=== PATIENT | female | born 1995 | race Caucasian/White ===

== ENCOUNTER 2017-04-13 15:09 | Emergency (ER) | payer MEDICAID ==
[~2017-04-13] VITALS: Ht 170.2 cm; Wt 83.9 kg
[~2017-04-13 15:09] MED LIST: ADDERALL XR25 MG PO; AMITRIPTYLINE 550 MG PO; AMITRIPTYLINE50 MG PO; APAP/BUTALBITAL1 TA1 PO; AUGMENTIN 875-1 EACH PO; BIRTH CONTROL PILLS PO; BUSPIRONE HCL10 MG PO; CELEXA40 MG PO; CIPRO 500MG TA500 MG PO; DELTASONE5 MG PO; ESCITALOPRAM20 MG NG; FLAGYL 500MG.500 MG PO; FLEXERIL10 MG PO; HYDROCODONE-APA1 TA1 PO; HYDROCORT 1% CR30 GM TP; HYDROXYZINE50 MG PO; IBUPROFEN 600M600 MG PO; KEFLEX 500MG.500 MG PO; LEVAQUIN500 MG PO; LEXAPRO 20 MG T20 MG PO; MEDROL 4MG. DOSE4 MG PO; MELOXICAM15 MG PO; METHOCARBAMOL500 MG PO; METHYLPHENIDATE10 M1 PO; MIGRAINE MED PO; MOBIC15 MG PO; MOTRIN400 MG PO; NAPROSYN500 M1 PO; NAPROXEN SODIU500 MG PO; NUVARING1 ICR VG; QUALITY CHOICE10 M2 PO; RISPERDAL0.5 MG PO; RITALIN 5MG TABL5 MG PO; RITALIN5 MG PO; SUMATRIPTAN5 MG PO; TIZANIDINE2 MG PO; TRAZODONE100 MG PO; VALACYCLOVIR HYD1 GM PO; VENTOLIN H0.09 MG/Ac IH; VOLTAREN75 MG PO; ZOFRAN ODT4 MG PO; ZOFRAN4 MG PO; Zithromax500 MG PO
[2017-04-13] MEDS ORDERED: SPRINTEC 35 MCG1 TAB PO (15:15)
[2017-04-13] MEDS ORDERED: GABAPENTIN 600600 MG PO (15:15)
[2017-04-13] MEDS ORDERED: TRAZADONE HYDR100 MG PO (15:16)
[2017-04-13] MEDS ORDERED: GOOD SENSE OMEP20 MG PO (15:16)
[2017-04-13] MEDS ORDERED: QUETIAPINE FUMA50 M1 PO (15:16)
[2017-04-13] MEDS ORDERED: FLUOXETINE HYDR20 MG PO (15:16)
[2017-04-13] MEDS ORDERED: DICLOFENAC SODI75 M2 PO (15:16)
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
--- OUTSIDE RECORDS SUMMARY | 2017-04-13 15:47 | External Medical Summary Rpt ---
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 AR 0 MA MG CY TA BL ET DI 61 05 06 60 30 00 CL Ac CL 44 -2 -2 .0 00 IN ti OF 20 0- 3- 00 00 IC ve EN 10 20 20 41 AC 31 17 17 59 PH 0 81 AR SO MA D CY DR 75 MG TA B ROSALES 55 05 06 9. 30 00 CL Ac MA 11 -2 -2 00 00 IN ti TR 10 3- 3- 0 00 IC ve IP 29 20 20 42 TA 30 17 17 89 PH N 9 91 AR ROSALES MA CC CY 10 0 MG TA BL ET TR 59 05 06 2. 1 00 CL Ac IA 76 -2 -2 00 00 IN ti ZO 23 4- 3- 0 00 IC ve LA 71 20 20 43 M 80 17 17 19 PH 0. 4 93 AR 25 MA CY MG TA BL ET VE 00 05 06 18 16 00 CL Ac NT 17 -1 -1 .0 00 IN ti OL 30 7- 6- 00 00 IC ve IN 68 20 20 43 22 17 17 13 PH HF 0 13 AR A MA 90 CY MC G IN TIDWELL LE R IB 55 05 06 30 10 00 CL Ac UP 11 -1 -1 .0 00 IN ti RO 10 1- 6- 00 00 IC ve FE 68 20 20 43 N 40 17 17 08 PH 80 5 55 AR 0 MA MG CY TA BL ET CL 00 05 06 21 7 00 CL Ac IN 59 -1 -1 .0 00 IN ti DA 12 1- 6- 00 00 IC ve MY 93 20 20 43 CI 20 17 17 08 PH N 1 56 AR HC MA L CY 30 0 MG CA PS UL E SP 00 05 06 28 28 00 CL Ac RI 55 -1 -1 .0 00 IN ti NT 59 7- 6- 00 00 IC ve EC 01 20 20 42 65 17 17 86 PH 28 8 19 AR MA DA CY Y TA BL ET PN 44 04 05 30 30 00 CL Ac V 94 -2 -2 .0 00 IN ti LA 61 3- 6- 00 00 IC ve EN 04 20 20 40 AT 50 17 17 94 PH AL [address] CY US MU LT IV IT TA B OM 00 04 05 60 30 00 CL Ac EP 11 -2 -2 .0 00 IN ti RA 30 3- 6- 00 00 IC ve ZO 91 20 20 42 LE 53 17 17 63 PH [address] MA CY 20 MG TA BL ET ROSALES 55 04 05 9. 9 00 CL Ac MA 11 -2 -2 00 00 IN ti TR 10 3- 6- 0 00 IC ve IP 29 20 20 42 TA 30 17 17 63 PH N 9 16 AR ROSALES MA CC CY 10 0 MG TA BL ET TR 50 04 05 30 30 00 CL Ac AZ 11 -2 -2 .0 00 IN ti OD 10 3- 6- 00 00 IC ve ON 43 20 20 42 E 40 17 17 63 PH 10 1 18 AR 0 MA MG CY TA BL ET QU 67 04 05 60 30 00 CL Ac ET 87 -2 -2 .0 00 IN ti IA 70 3- 6- 00 00 IC ve PI 24 20 20 41 NE 90 17 17 71 PH 1 12 AR FU MA MA CY RA TE 50 MG TA B DI 61 04 05 60 30 00 CL Ac CL 44 -2 -2 .0 00 IN ti OF 20 3- 6- 00 00 IC ve EN 10 20 20 41 AC 31 17 17 59 PH 0 81 AR SO MA D CY DR 75 MG TA B FL 65 04 05 30 30 00 CL Ac UO 86 -2 -2 .0 00 IN ti XE 20 3- 6- 00 00 IC ve TI 19 20 20 41 NE 30 17 17 71 PH 1 14 AR HC MA L CY 20 MG CA PS UL E VE 00 04 05 18 16 00 CL Ac NT 17 -2 -2 .0 00 IN ti OL 30 3- 6- 00 00 IC ve IN 68 20 20 42 22 17 17 35 PH HF 0 28 AR A MA 90 CY MC G IN TIDWELL LE R IB 67 04 05 30 7 00 CL Ac UP 87 -2 -2 .0 00 IN ti RO 70 6- 6- 00 00 IC ve FE 32 20 20 42 N 00 17 17 94 PH 60 5 11 AR 0 MA MG CY TA BL ET HY 13 04 05 [address] 10 -2 -2 .0 00 IN ti OC 70 6- 6- 00 00 IC ve OD 02 20 20 42 ON 00 17 17 94 PH -A 5 12 AR CE MA TA CY HI NO PH 7. 5- 32 5 SP 00 04 05 28 28 00 CL Ac RI 55 -1 -1 .0 00 IN ti NT 59 9- 9- 00 00 IC ve EC 01 20 20 42 65 17 17 86 PH 28 8 19 AR MA DA CY Y TA BL ET PN 44 03 04 30 30 00 CL Ac V 94 -2 -2 .0 00 IN ti LA 61 5- 8- 00 00 IC ve EN 04 20 20 40 AT 50 17 17 94 PH AL [address] CY US MU LT IV IT TA B VE 00 03 04 18 16 00 CL Ac NT 17 -2 -2 .0 00 IN ti OL 30 5- 8- 00 00 IC ve IN 68 20 20 42 22 17 17 35 PH HF 0 28 AR A MA 90 CY MC G IN TIDWELL LE R OM 00 03 04 60 30 00 CL Ac EP 11 -2 -2 .0 00 IN ti RA 30 5- 8- 00 00 IC ve ZO 91 20 20 40 LE 53 17 17 94 PH [address] MA CY 20 MG TA BL ET QU 67 03 04 60 30 00 CL Ac ET 87 -2 -2 .0 00 IN ti IA 70 5- 8- 00 00 IC ve PI 24 20 20 41 NE 90 17 17 71 PH 1 12 AR FU MA MA CY RA TE 50 MG TA B TR 50 03 04 30 30 00 CL Ac AZ 11 -2 -2 .0 00 IN ti OD 10 5- 8- 00 00 IC ve ON 43 20 20 41 E 40 17 17 71 PH 10 1 13 AR 0 MA MG CY TA BL ET FL 65 03 04 30 30 00 CL Ac UO 86 -2 -2 .0 00 IN ti XE 20 5- 8- 00 00 IC ve TI 19 20 20 41 NE 30 17 17 71 PH 1 14 AR HC MA L CY 20 MG CA PS UL E ROSALES 55 03 04 9. 9 00 CL Ac MA 11 -2 -2 00 00 IN ti TR 10 5- 8- 0 00 IC ve IP 29 20 20 40 TA 30 17 17 94 PH N 9 22 AR ROSALES MA CC CY 10 0 MG TA BL ET DI 61 03 04 60 30 00 CL Ac CL 44 -2 -2 .0 00 IN ti OF 20 5- 8- 00 00 IC ve EN 10 20 20 41 AC 31 17 17 59 PH 0 81 AR SO MA D CY DR 75 MG TA B TR 00 06 04 80 16 00 EA Ac IA 16 -1 -[address] ti MC 80 7- 7- 00 00 SI ve IN 00 20 20 39 DE OL 48 15 17 69 ON 0 25 PH E AR 0. MA 1% CY CR OF EA CY M NT HI AN A IN C OM 00 02 03 60 30 00 CL Ac EP 11 -2 -3 .0 00 IN ti RA 30 6- 1- 00 00 IC ve ZO 91 20 20 40 LE 53 17 17 94 PH [address] MA CY 20 MG TA BL ET QU 67 02 03 60 30 00 CL Ac ET 87 -2 -3 .0 00 IN ti IA 70 6- 1- 00 00 IC ve PI 24 20 20 41 NE 90 17 17 71 PH 1 12 AR FU MA MA CY RA TE 50 MG TA B FL 65 02 03 30 30 00 CL Ac UO 86 -2 -3 .0 00 IN ti XE 20 6- 1- 00 00 IC ve TI 19 20 20 41 NE 30 17 17 71 PH 1 14 AR HC MA L CY 20 MG CA PS UL E TR 50 02 03 30 30 00 CL Ac AZ 11 -2 -3 .0 00 IN ti OD 10 6- 1- 00 00 IC ve ON 43 20 20 41 E 40 17 17 71 PH 10 1 13 AR 0 MA MG CY TA BL ET DI 61 02 03 60 30 00 CL Ac CL 44 -2 -3 .0 00 IN ti OF 20 6- 1- 00 00 IC ve EN 10 20 20 40 AC 31 17 17 94 PH 0 20 AR SO MA D CY DR 75 MG TA B VE 00 02 03 18 16 00 CL Ac NT 17 -2 -3 .0 00 IN ti OL 30 7- 1- 00 00 IC ve IN 68 20 20 42 22 17 17 35 PH HF 0 28 AR A MA 90 CY MC G IN TIDWELL LE R ROSALES 55 02 03 9. 9 00 CL Ac MA 11 -1 -1 00 00 IN ti TR 10 4- 7- 0 00 IC ve IP 29 20 20 40 TA 30 17 17 94 PH N 9 22 AR ROSALES MA CC CY 10 0 MG TA BL ET OM 00 01 03 60 30 00 CL Ac EP 11 -3 -0 .0 00 IN ti RA 30 1- 3- 00 00 IC ve ZO 91 20 20 40 LE 53 17 17 94 PH [address] MA CY 20 MG TA BL ET QU 67 01 03 60 30 00 CL Ac ET 87 -3 -0 .0 00 IN ti IA 70 1- 3- 00 00 IC ve PI 24 20 20 41 NE 90 17 17 71 PH 1 12 AR FU MA MA CY RA TE 50 MG TA B DI 61 01 03 60 30 00 CL Ac CL 44 -3 -0 .0 00 IN ti OF 20 1- 3- 00 00 IC ve EN 10 20 20 40 AC 31 17 17 94 PH 0 20 AR SO MA D CY DR 75 MG TA B TR 50 01 03 30 30 00 CL Ac AZ 11 -3 -0 .0 00 IN ti OD 10 1- 3- 00 00 IC ve ON 43 20 20 41 E 40 17 17 71 PH 10 1 13 AR 0 MA MG CY TA BL ET FL 65 01 03 30 30 00 CL Ac UO 86 -3 -0 .0 00 IN ti XE 20 1- 3- 00 00 IC ve TI 19 20 20 41 NE 30 17 17 71 PH 1 14 AR HC MA L CY 20 MG CA PS UL E VE 00 01 03 18 16 00 CL Ac NT 17 -3 -0 .0 00 IN ti OL 30 1- 3- 00 00 IC ve IN 68 20 20 40 22 17 17 94 PH HF 0 29 AR A MA 90 CY MC G IN TIDWELL LE R ROSALES 55 01 02 9. 9 00 CL Ac MA 11 -1 -1 00 00 IN ti TR 10 3- 7- 0 00 IC ve IP 29 20 20 40 TA 30 17 17 94 PH N 9 22 AR ROSALES MA CC CY 10 0 MG TA BL ET DI 61 12 01 60 30 00 CL Ac CL 44 -2 -2 .0 00 IN ti OF 20 2- 7- 00 00 IC ve EN 10 20 20 40 AC 31 16 17 94 PH 0 20 AR SO MA D CY DR 75 MG TA B OM 00 12 01 60 30 00 CL Ac EP 11 -2 -2 .0 00 IN ti RA 30 2- 7- 00 00 IC ve ZO 91 20 20 40 LE 53 16 17 94 PH [address] MA CY 20 MG TA BL ET FL 65 12 01 30 30 00 CL Ac UO 86 -2 -2 .0 00 IN ti XE 20 2- 7- 00 00 IC ve TI 19 20 20 41 NE 30 16 17 44 PH 1 22 AR HC MA L CY 20 MG CA PS UL E TR 50 12 01 30 30 00 CL Ac AZ 11 -2 -2 .0 00 IN ti OD 10 2- 7- 00 00 IC ve ON 43 20 20 41 E 40 16 17 44 PH 10 1 23 AR 0 MA MG CY TA BL ET QU 60 12 01 60 30 00 CL Ac ET 50 -2 -2 .0 00 IN ti IA 53 2- 7- 00 00 IC ve PI 13 20 20 41 NE 20 16 17 44 PH 8 24 AR FU MA MA CY RA TE 50 MG TA B VE 00 12 01 18 16 00 CL Ac NT 17 -2 -2 .0 00 IN ti OL 30 2- 7- 00 00 IC ve IN 68 20 20 40 22 16 17 94 PH HF 0 29 AR A MA 90 CY MC G IN TIDWELL LE R LA 00 12 01 7. 7 00 CL Ac ED 05 1 -1 00 00 IN ti NI 40 2- 3- 0 00 IC ve SO 01 20 20 41 NE 82 16 17 59 PH 9 80 AR 20 MA CY MG TA BL ET AD 54 11 11 0 30 30 EA 25 HI Ac DE 09 -2 -[address] 07 LL ti RA 20 2- 2- 00 SI 13 ER ve LL 38 20 20 DE 90 11 11 CA XR 1 PH RO AR L 25 MA J CY MG OF CA PS CY UL NT E HI AN A 00 11 11 0 10 5 EA 24 RI Ac 14 -1 -[address] 90 SH ti 31 1- 1- 00 SI 11 ER ve 47 20 20 DE 70 11 11 RI 5 PH CH AR AR MA D CY OF CY NT HI AN A IB 53 11 11 0 20 7 EA 24 RI Ac UP 74 -1 -[address] 90 SH ti RO 60 1- 1 00 SI 12 ER ve FE 46 20 20 DE N 60 11 11 RI 80 5 PH CH 0 AR AR MG MA D CY TA BL OF ET CY NT HI AN A 00 11 11 0 20 5 EA 24 RI Ac 09 -[address] 90 SH ti 50 1- 1- 00 SI 13 ER ve 24 20 20 DE 00 11 11 RI 1 PH CH AR AR MA D CY OF CY NT HI AN A 00 11 11 0 6. 30 EA 24 RI Ac -[address] 90 SH ti 30 1- 1- 0 SI 14 ER ve 22 20 20 DE 39 11 11 RI 0 PH CH AR AR MA D CY OF CY NT HI AN A RI 50 09 11 1 60 30 EA 24 HI Ac SP 45 -2 -[address] 27 LL ti ER 80 7- 8- 00 SI 00 ER ve ID 59 20 20 DE ON 16 11 11 CA E 0 PH RO 0. AR L 5 MA J MG CY TA OF BL ET CY NT HI AN A VA 00 10 10 0 20 10 EA 24 WE Ac LT 17 -1 -[address] 58 HR ti RE 30 9 9- 00 SI 47 MA ve X 56 20 20 DE N 1 50 11 11 II GM 4 PH I AR WI CA MA LL PL CY IA ET M OF E CY NT HI AN A 00 10 10 0 2. 2 EA 24 WE Ac -[address] 58 HR ti 37 9- 9- 0 SI 48 MA ve 16 20 20 DE N 93 11 11 II 3 PH I AR WI MA LL CY IA M OF E CY NT HI AN A AD 54 09 10 0 30 30 EA 24 HI Ac DE 09 -2 -[address] 52 LL ti RA 20 7- 7- 00 SI 99 ER ve LL 38 20 20 DE 90 11 11 CA XR 1 PH RO AR L 25 MA J CY MG OF CA PS CY UL NT E HI AN A BR 60 09 10 1 12 3 EA 24 WR Ac OM 43 -0 -[address] 02 IG ti FE 20 9- 3- 00 SI 60 HT ve D 83 20 20 0 DE DM 71 11 11 AR 6 PH DY CO AR C UG MA H CY SY RU OF P CY NT HI AN A NA 53 09 10 0 30 15 EA 24 RI Ac LA 74 -2 -[address] 18 SH ti OX 60 1- 3- 00 SI 98 ER ve EN 19 20 20 DE 01 11 11 RI 50 0 PH CH 0 AR AR MG MA D CY TA BL OF ET CY NT HI AN A RI 50 09 09 1 60 30 EA 24 HI Ac SP 45 -2 -[address] 27 LL ti ER 80 7- 7- 00 SI 00 ER ve ID 59 20 20 DE ON 16 11 11 CA E 0 PH RO 0. AR L 5 MA J MG CY TA OF BL ET CY NT HI AN A PE 00 09 09 1 59 1 EA 24 RI Ac RM 47 -2 -[address] 18 SH ti ET 25 1- 1- 00 SI 96 ER ve HR 24 20 20 DE IN 26 11 11 RI 7 PH CH 1% AR AR MA D LO CY TI ON OF CY NT HI AN A CY 00 09 09 0 15 15 EA 24 RI Ac CL 37 -2 -[address] 18 SH ti OB 80 1- 1- 00 SI 97 ER ve EN 77 20 20 DE ZA 10 11 11 RI LA 1 PH CH IN AR AR E MA D 5 CY MG OF TA BL CY ET NT HI AN A AD 54 09 09 0 30 30 EA 24 HI Ac DE 09 -2 -[address] 16 LL ti RA 20 0- 0- 00 SI 88 ER ve LL 38 20 20 DE 90 11 11 CA XR 1 PH RO AR L 25 MA J CY MG OF CA PS CY UL NT E HI AN A NA 53 09 09 0 30 15 EA 24 WR Ac LA 74 -0 -[address] 02 IG ti OX 60 9- 9- 00 SI 59 HT ve EN 19 20 20 DE 01 11 11 AR 50 0 PH DY 0 AR C MG MA CY TA BL OF ET CY NT HI AN A BR 60 09 09 1 12 3 EA 24 WR Ac OM 43 -0 -[address] 02 IG ti FE 20 9- 9- 00 SI 60 HT ve D 83 20 20 0 DE DM 71 11 11 AR 6 PH DY CO AR C UG MA H CY SY RU OF P CY NT HI AN A CE 00 09 09 0 28 7 EA 24 WR Ac PH 09 -0 -[address] 02 IG ti AL 33 9 9 00 SI 61 HT ve EX 14 20 20 DE IN 70 11 11 AR 5 PH DY 50 AR C 0 MA MG CY CA OF PS UL CY E NT HI AN A RI 50 08 08 1 60 30 EA 23 HI Ac SP 45 -0 -[address] 51 LL ti ER 80 2- 1- 00 SI 05 ER ve ID 59 20 20 DE ON 16 11 11 CA E 0 PH RO 0. AR L 5 MA J MG CY TA OF BL ET CY NT HI AN A AD 54 08 08 0 30 30 EA 23 HI Ac DE 09 -1 -[address] 67 LL ti RA 20 6- 6 00 SI 52 ER ve LL 38 20 20 DE 90 11 11 CA XR 1 PH RO AR L 25 MA J CY MG OF CA PS CY UL NT E HI AN A PE 00 04 08 1 59 1 EA 22 MO Ac RM 47 -2 -[address] 28 SE ti ET 25 7- 9 00 SI 75 S ve HR [address] IN 26 11 11 EP 7 PH HE 1% AR N MA A LO CY TI ON OF CY NT HI AN A RI 50 08 08 1 60 30 EA 23 HI Ac SP 45 -0 -[address] 51 LL ti ER 80 2- 2- 00 SI 05 ER ve ID 59 20 20 DE ON 16 11 11 CA E 0 PH RO 0. AR L 5 MA J MG CY TA OF BL ET CY NT HI AN A AD 54 07 07 0 30 30 EA 23 HI Ac DE 09 -1 -[address] 33 LL ti RA 20 8- 8- 00 SI 98 ER ve LL 38 20 20 DE 90 11 11 CA XR 1 PH RO AR L 25 MA J CY MG OF CA PS CY UL NT E HI AN A RI 50 06 07 1 60 30 EA 22 HI Ac SP 45 -1 -[address] 93 LL ti ER 80 4- 5- 00 SI 40 ER ve ID 59 20 20 DE ON 16 11 11 CA E 0 PH RO 0. AR L 5 MA J MG CY TA OF BL ET CY NT HI AN A AD 54 06 06 0 30 30 EA 22 HI Ac DE 09 -1 -[address] 93 LL ti RA 20 4- 4- 00 SI 62 ER ve LL 38 20 20 DE 90 11 11 CA XR 1 PH RO AR L 25 MA J CY MG OF CA PS CY UL NT E HI AN A RI 50 06 06 0 60 30 EA 22 MO Ac SP 45 -0 -[address] 77 SE ti ER 80 1- 1- 00 SI 23 S ve ID [address] ON 16 11 11 EP E 0 PH HE 0. AR N 5 MA A MG CY TA OF BL ET CY NT HI AN A AD 54 05 05 0 30 30 EA 22 HI Ac DE 09 -0 -[address] 37 LL ti RA 20 3- 3- 00 SI 79 ER ve LL 38 20 20 DE 90 11 11 CA XR 1 PH RO AR L 25 MA J CY MG OF CA PS CY UL NT E HI AN A RI 50 01 04 2 60 30 EA 21 MO Ac SP 45 -3 -[address] 02 SE ti ER 80 1- 8- 00 SI 04 S ve ID [address] ON 16 11 11 EP E 0 PH HE 0. AR N 5 MA A MG CY TA OF BL ET CY NT HI AN A PE 00 04 04 1 59 1 EA 22 MO Ac RM 47 -2 -[address] 28 SE ti ET 25 7- 7- 00 SI 75 S ve HR [address] IN 26 11 11 EP 7 PH HE 1% AR N MA A LO CY TI ON OF CY NT HI AN A AM 00 04 04 0 28 7 EA 22 MO Ac OX 78 -0 -[address] 02 SE ti IC 12 7- 7- 00 SI 54 S ve IL [address] LI 30 11 11 EP N 5 PH HE 50 AR N 0 MA A MG CY CA OF PS UL CY E NT HI AN A CE 45 04 04 5 30 30 EA 22 MO Ac TI 80 -0 -[address] 02 SE ti RI 20 7- 7- 00 SI 55 S ve ZI [address] NE 98 11 11 EP 7 PH HE HC AR N L MA A 10 CY MG OF TA CY BL NT ET HI AN A AD 54 03 03 0 30 30 EA 21 HI Ac DE 09 -2 -[address] 85 LL ti RA 20 5- 0- 00 SI 61 ER ve LL 38 20 20 DE 90 11 11 CA XR 1 PH RO AR L 25 MA J CY MG OF CA PS CY UL NT E HI AN A RI 50 01 03 2 60 30 EA 21 MO Ac SP 45 -3 -[address] 02 SE ti ER 80 1- 1- 00 SI 04 S ve ID [address] ON 16 11 11 EP E 0 PH HE 0. AR N 5 MA A MG CY TA OF BL ET CY NT HI AN A AD 54 02 02 30 30 RI 87 HI Ac DE 09 -1 -2 .0 TE 25 LL ti RA 20 5- 7- 00 63 ER ve LL 38 20 20 AI 90 11 11 D CA XR 1 PH RO AR L 25 MA J CY MG 03 CA 93 PS 8 UL # E 03 93 00 01 01 0 21 14 EA 21 MO Ac 14 -3 -[address] 01 SE ti 31 1- 1- 00 SI 92 S ve [address] 70 11 11 EP 5 PH HE AR N MA A CY OF CY NT HI AN A LA 00 01 01 0 30 7 EA 21 MO Ac OM 78 -3 -[address] 01 SE ti ET 11 1- 1- 00 SI 93 S ve TIDWELL [address] ZI 01 11 11 EP NE 0 PH HE AR N 25 MA A CY MG OF TA BL CY ET NT HI AN A IB 53 01 01 0 90 30 EA 21 MO Ac UP 74 -3 -[address] 01 SE ti RO 60 1- 1- 00 SI 94 S ve FE [address] N 60 11 11 EP 80 5 PH HE 0 AR N MG MA A CY TA BL OF ET CY NT HI AN A RI 50 01 01 2 60 30 EA 21 MO Ac SP 45 -3 -[address] 02 SE ti ER 80 1- 1- 00 SI 04 S ve ID [address] ON 16 11 11 EP E 0 PH HE 0. AR N 5 MA A MG CY TA OF BL ET CY NT HI AN A AD 54 01 01 0 30 30 EA 21 MO Ac DE 09 -3 -[address] 02 SE ti RA 20 1- 1- 00 SI 05 S ve LL [address] 90 11 11 EP XR 1 PH HE AR N 25 MA A CY MG OF CA PS CY UL NT E HI AN A PE 00 01 01 59 1 RI 86 WR Ac RM 47 -2 -2 .0 TE 79 IG ti ET 25 6- 6- 00 32 HT ve HR 24 20 20 AI IN 26 11 11 D AR 7 PH DY 1% AR C MA LO CY TI ON 03 93 8 # 03 93 AD 54 12 12 30 30 RI 86 HI Ac DE 09 -2 -2 .0 TE 43 LL ti RA 20 8- 9- 00 63 ER ve LL 38 20 20 AI 90 10 10 D CA XR 1 PH RO AR L 25 MA J CY MG 03 CA 93 PS 8 UL # E 03 93 RI 50 12 12 0 60 30 EA 20 HI Ac SP 45 -2 -[address] 56 LL ti ER 80 8- 8- 00 SI 82 ER ve ID 59 20 20 DE ON 16 10 10 CA E 0 PH RO 0. AR L 5 MA J MG CY TA OF BL ET CY NT HI AN A RI 50 12 12 3 30 30 EA 20 RI Ac SP 45 -2 -[address] 46 SH ti ER 80 0- 0- 00 SI 11 ER ve ID 59 20 20 DE ON 16 10 10 RI E 0 PH CH 0. AR AR 5 MA D MG CY TA OF BL ET CY NT HI AN A PE 00 12 12 0 59 1 EA 20 MO Ac RM 47 -2 -[address] 46 SE ti ET 25 0- 0- 00 SI 77 S ve HR [address] IN 26 10 10 EP 7 PH HE 1% AR N MA A LO CY TI ON OF CY NT HI AN A OX 00 12 12 20 3 RI 86 HE Ac YC 60 -0 -0 .0 TE 10 ND ti OD 34 6- 6- 00 84 ER ve ON 99 20 20 AI SO E- 82 10 10 D N AC 1 PH RO ET AR BE AM MA RT IN CY W OP HE 03 N 93 5- 8 32 # 5 03 93 ME 00 12 12 1 21 6 RI 86 HE Ac TH 60 -0 -0 .0 TE 10 ND ti YL 34 6- 6- 00 85 ER ve LA 59 20 20 AI SO ED 31 10 10 D N NI 5 PH RO SO AR BE LO MA RT NE CY W 4 03 MG 93 8 DO # SE 03 PK 93 AM 00 12 12 15 5 RI 86 HE Ac OX 78 -0 -0 .0 TE 10 ND ti IC 12 6- 6- 00 86 ER ve IL 61 20 20 AI SO LI 30 10 10 D N N 5 PH RO 50 AR BE 0 MA RT MG CY W CA 03 PS 93 UL 8 E # 03 93 AD 54 11 11 0 30 30 EA 20 RI Ac DE 09 -2 -[address] 16 SH ti RA 20 9- 9- 00 SI 53 ER ve LL 38 20 20 DE 90 10 10 RI XR 1 PH CH AR AR 25 MA D CY MG OF CA PS CY UL NT E HI AN A RI 50 09 11 3 30 30 EA 19 RI Ac SP 45 -1 -[address] 13 SH ti ER 80 4- 2- 00 SI 80 ER ve ID 59 20 20 DE ON 16 10 10 RI E 0 PH CH 0. AR AR 5 MA D MG CY TA OF BL ET CY NT HI AN A 00 11 11 15 2 RI 85 HE Ac 40 -2 -2 .0 TE 92 ND ti 60 2- 2- 00 90 ER ve 35 20 20 AI SO 80 10 10 D N 1 PH RO AR BE MA RT CY W 03 93 8 # 03 93 00 11 11 15 2 RI 85 HE Ac 40 -2 -2 .0 TE 92 ND ti 60 2- 2- 00 90 ER ve 35 20 20 AI SO 80 10 10 D N 1 PH RO AR BE MA RT CY W 03 93 8 # 03 93 PE 00 11 11 0 59 1 EA 19 MO Ac RM 47 -1 -[address] 94 SE ti ET 25 2- 2- 00 SI 59 S ve HR [address] IN 26 10 10 EP 7 PH HE 1% AR N MA A LO CY TI ON OF CY NT HI AN A AD 54 10 10 0 30 30 EA 19 RI Ac DE 09 -2 -[address] 72 SH ti RA 20 8- 8- 00 SI 66 ER ve LL 38 20 20 DE 90 10 10 RI XR 1 PH CH AR AR 25 MA D CY MG OF CA PS CY UL NT E HI AN A RI 50 09 10 3 30 30 EA 19 RI Ac SP 45 -1 -[address] 13 SH ti ER 80 4- 0- 00 SI 80 ER ve ID 59 20 20 DE ON 16 10 10 RI E 0 PH CH 0. AR AR 5 MA D MG CY TA OF BL ET CY NT HI AN A PE 00 10 10 0 59 1 EA 19 MO Ac RM 47 -1 -[address] 51 SE ti ET 25 2- 2- 00 SI 54 S ve HR [address] IN 26 10 10 EP 7 PH HE 1% AR N MA A LO CY TI ON OF CY NT HI AN A RI 50 09 09 3 30 30 EA 19 RI Ac SP 45 -1 -[address] 13 SH ti ER 80 4- 4- 00 SI 80 ER ve ID 59 20 20 DE ON 16 10 10 RI E 0 PH CH 0. AR AR 5 MA D MG CY TA OF BL ET CY NT HI AN A AD 54 09 09 0 30 30 EA 19 RI Ac DE 09 -1 -[address] 13 SH ti RA 20 4- 4- 00 SI 81 ER ve LL 38 20 20 DE 90 10 10 RI XR 1 PH CH AR AR 25 MA D CY MG OF CA PS CY UL NT E HI AN A RI 50 08 08 1 30 30 EA 18 MO Ac SP 45 -0 -[address] 62 SE ti ER 80 7- 7- 00 SI 75 S ve ID [address] ON 16 10 10 EP E 0 PH HE 0. AR N 5 MA A MG CY TA OF BL ET CY NT HI AN A AD 54 08 08 0 30 30 EA 18 MO Ac DE 09 -0 -[address] 62 SE ti RA 20 7- 7- 00 SI 76 S ve LL [address] 90 10 10 EP XR 1 PH HE AR N 25 MA A CY MG OF CA PS CY UL NT E HI AN A 00 08 08 0 22 13 EA 18 WE Ac 14 -0 -[address] 62 HR ti 31 7- 7- 00 SI 77 MA ve 47 20 20 DE N 70 10 10 II 5 PH I AR WI MA LL CY IA M OF E CY NT HI AN A PE 00 08 08 0 59 1 EA 18 RI Ac RM 47 -0 -[address] 57 SH ti ET 25 3- 3- 00 SI 41 ER ve HR 24 20 20 DE IN 26 10 10 RI 7 PH CH 1% AR AR MA D LO CY TI ON OF CY NT HI AN A AM 00 07 07 0 14 7 EA 18 RI Ac OX 14 -2 -[address] 41 SH ti IC 39 0- 0- 00 SI 32 ER ve IL 95 20 20 DE LI 10 10 10 RI N 1 PH CH 87 AR AR 5 MA D MG CY TA OF BL ET CY NT HI AN A NE 61 07 07 0 10 5 EA 18 RI Ac OM 31 -2 -[address] 41 SH ti YC 40 0- 0- 00 SI 33 ER ve IN 64 20 20 DE -P 51 10 10 RI OL 1 PH CH YM AR AR YX MA D IN CY -H C OF EA R CY ROSALES NT SP HI AN A PE 00 07 07 0 59 1 EA 18 RI Ac RM 47 -1 -[address] 39 SH ti ET 25 9- 9- 00 SI 07 ER ve HR 24 20 20 DE IN 26 10 10 RI 7 PH CH 1% AR AR MA D LO CY TI ON OF CY NT HI AN A TR 00 07 07 0 80 5 EA 18 MO Ac IA 16 -1 -[address] 30 SE ti MC 80 2- 2- 00 SI 21 S ve IN [address] OL 48 10 10 EP ON 0 PH HE E AR N 0. MA A 1% CY CR OF EA M CY NT HI AN A RI 00 07 07 2 30 30 RI 84 MO Ac SP 09 -0 -0 .0 TE 04 SE ti ER 30 2- 4- 00 97 S ve ID [address] ON 50 10 10 D EP E 6 PH HE 0. AR N 5 MA A MG CY TA 03 BL 93 ET 8 # 03 93 AD 54 07 07 30 30 RI 84 MO Ac DE 09 -0 -0 .0 TE 05 SE ti RA 20 2- 4- 00 00 S ve LL [address] 90 10 10 D EP XR 1 PH HE AR N 25 MA A CY MG 03 CA 93 PS 8 UL # E 03 93 AD 54 05 05 0 30 30 EA 17 MO Ac DE 09 -2 -[address] 72 SE ti RA 20 5- 5- 00 SI 56 S ve LL [address] 90 10 10 EP XR 1 PH HE AR N 25 MA A CY MG OF CA PS CY UL NT E HI AN A RI 50 05 05 0 60 30 EA 17 RI Ac SP 45 -1 -[address] 63 SH ti ER 80 8- 8- 00 SI 99 ER ve ID 59 20 20 DE ON 26 10 10 RI E 0 PH CH 1 AR AR MG MA D CY TA BL OF ET CY NT HI AN A SM 49 05 05 0 59 1 EA 17 MO Ac 34 -1 -[address] 64 SE ti LI 80 8- 8- 00 SI 00 S ve CE [address] 03 10 10 EP TR 0 PH HE EA AR N TM MA A EN CY T PE OF RM ET CY HR NT IN HI AN A RI 50 01 04 2 60 30 EA 16 RI Ac SP 45 -2 -[address] 04 SH ti ER 80 0- 3- 00 SI 22 ER ve ID 59 20 20 DE ON 26 10 10 RI E 0 PH CH 1 AR AR MG MA D CY TA BL OF ET CY NT HI AN A AD 54 04 04 0 30 30 EA 17 MO Ac DE 09 -2 -[address] 31 SE ti RA 20 3- 3- 00 SI 40 S ve LL [address] 90 10 10 EP XR 1 PH HE AR N 25 MA A CY MG OF CA PS CY UL NT E HI AN A PE 00 04 04 59 1 RI 83 WR Ac RM 47 -2 -2 .0 TE 06 IG ti ET 25 0- 0- 00 58 HT ve HR 24 20 20 AI IN 26 10 10 D AR 7 PH DY 1% AR C MA LO CY TI ON 03 93 8 # 03 93 AD 54 03 03 0 30 30 EA 16 MO Ac DE 09 -2 -[address] 88 SE ti RA 20 2- 2- 00 SI 12 S ve LL [address] 90 10 10 EP XR 1 PH HE AR N 25 MA A CY MG OF CA PS CY UL NT E HI AN A HY 16 03 03 0 60 10 EA [address] 71 -2 -[address] 88 SE ti OX 40 2- 2- 00 SI 13 S ve YZ [address] IN 20 10 10 EP E 4 PH HE HC AR N L MA A 25 CY MG OF TA CY BL NT ET HI AN A RI 50 01 03 2 60 30 EA 16 RI Ac SP 45 -2 -[address] 04 SH ti ER 80 0- 1- 00 SI 22 ER ve ID 59 20 20 DE ON 26 10 10 RI E 0 PH CH 1 AR AR MG MA D CY TA BL OF ET CY NT HI AN A LI 60 03 03 60 1 RI 82 GA Ac ND 43 -1 -1 .0 TE 59 IN ti AN 20 7- 8- 00 63 EY ve E 83 20 20 AI 1% 36 10 10 D HI 0 PH CH LO AR AE TI MA L ON CY S 03 93 8 # 03 93 TR 60 03 03 1 60 5 EA 16 MO Ac IA 43 -0 -[address] 57 SE ti MC 20 1- 1- 00 SI 47 S ve IN [address] OL 16 10 10 EP ON 0 PH HE E AR N 0. MA A 1% CY LO OF TI ON CY NT HI AN A SM 49 03 03 0 59 1 EA 16 MO Ac 34 -0 -[address] 57 SE ti LI 80 1- 1- 00 SI 51 S ve CE [address] 03 10 10 EP TR 0 PH HE EA AR N TM MA A EN CY T PE OF RM ET CY HR NT IN HI AN A RI 50 01 02 00 60 30 EA 16 RI Ac SP 45 -2 -[address] 04 SH ti ER 80 0- 6- 00 SI 22 ER ve ID 59 20 20 DE ON 26 10 10 RI E 0 PH CH 1 AR AR MG MA D CY TA BL OF ET CY NT HI AN A AD 54 01 01 00 30 30 EA 16 RI Ac DE 09 -2 -[address] 04 SH ti RA 20 0- 8- 00 SI 21 ER ve LL 38 20 20 DE 90 10 10 RI XR 1 PH CH AR AR 25 MA D CY MG OF CA CY PS NT UL HI E AN A RI 50 12 01 01 60 30 EA 15 RI Ac SP 45 -1 -[address] 59 SH ti ER 80 5- 8- 00 SI 38 ER ve ID 59 20 20 DE ON 26 09 10 RI E 0 PH CH 1 AR AR MG MA D CY TA BL OF ET CY NT HI AN A AD 54 12 12 00 30 30 EA 15 RI Ac DE 09 -1 -[address] 59 SH ti RA 20 5- 1- 00 SI 37 ER ve LL 38 20 20 DE 90 09 09 RI XR 1 PH CH AR AR 25 MA D CY MG OF CA CY PS NT UL HI E AN A RI 50 12 12 00 60 30 EA 15 RI Ac SP 45 -1 -[address] 59 SH ti ER 80 5- 1- 00 SI 38 ER ve ID 59 20 20 DE ON 26 09 09 RI E 0 PH CH 1 AR AR MG MA D CY TA BL OF ET CY NT HI AN A 49 12 12 00 40 10 EA 15 GA Ac 88 -0 -[address] 40 IN ti 40 3- 7- 00 SI 93 EY ve 77 20 20 DE 70 09 09 HI 1 PH CH AR AE MA L CY S OF CY NT HI AN A SM 49 09 12 01 59 1 EA 14 RI Ac 34 -2 -[address] 39 SH ti LI 80 3- 3- 00 SI 17 ER ve CE 46 20 20 DE 03 09 09 RI TR 0 PH CH EA AR AR TM MA D EN CY T PE OF RM CY ET NT HR HI IN AN A RI 50 09 11 01 60 30 EA 14 RI Ac SP 45 -1 -[address] 27 SH ti ER 80 5- 9- 00 SI 11 ER ve ID 59 20 20 DE ON 26 09 09 RI E 0 PH CH 1 AR AR MG MA D CY TA BL OF ET CY NT HI AN A AD 54 11 11 00 30 30 EA 15 RI Ac DE 09 -1 -[address] 10 SH ti RA 20 2- 9- 00 SI 92 ER ve LL 38 20 20 DE 90 09 09 RI XR 1 PH CH AR AR 25 MA D CY MG OF CA CY PS NT UL HI E AN A PE 00 10 11 00 59 1 RI 80 RI Ac RM 47 -2 -0 .0 TE 53 SH ti ET 25 2- 5- 00 99 ER ve HR 24 20 20 AI IN 26 09 09 D RI 7 PH CH 1% AR AR M D LO #3 TI 93 ON 8 AM 00 10 10 00 20 7 EA 14 HE Ac OX 78 -1 -[address] 69 ND ti IC 12 4- 2- 00 SI 75 ER ve IL 61 20 20 DE SO LI 30 09 09 N N 5 PH RO 50 AR BE 0 MA RT MG CY W CA OF PS CY UL NT E HI AN A 00 10 10 00 20 2 EA 14 HE Ac 05 -1 -[address] 69 ND ti 44 4- 2- 00 SI 74 ER ve 65 20 20 DE SO 02 09 09 N 9 PH RO AR BE MA RT CY W OF CY NT HI AN A IB 53 10 10 00 40 10 RI 80 GA Ac UP 74 -0 -2 .0 TE 40 IN ti RO 60 6- 2- 00 29 EY ve FE 46 20 20 AI N 40 09 09 D HI 40 5 PH CH 0 AR AE MG M L #3 S TA 93 BL 8 ET AD 54 10 10 00 30 30 CL 20 RI Ac DE 09 -1 -2 .0 IN 25 SH ti RA 20 3- 2- 00 IC 97 ER ve LL 38 20 20 90 09 09 PH RI XR 1 AR CH MA AR 25 CY D MG CA PS UL E AC 00 09 10 00 [address] Ac ET 09 -3 -[address] 50 EP ti AM 30 0- 8- 00 SI 00 HE ve IN 15 20 20 DE NS OP 00 09 09 HE 1 PH KE N- AR CO MA N D CY C #3 OF TA CY BL NT ET HI AN A AM 00 09 10 00 [address] Ac OX 78 -3 -[address] 49 EP ti IC 12 0- 8- 00 SI 99 HE ve IL 61 20 20 DE NS LI 30 09 09 N 5 PH KE 50 AR 0 MA N MG CY C CA OF PS CY UL NT E HI AN A SM 49 09 10 00 59 1 EA 14 RI Ac 34 -2 -[address] 39 SH ti LI 80 3- 8- 00 SI 17 ER ve CE 46 20 20 DE 03 09 09 RI TR 0 PH CH EA AR AR TM MA D EN CY T PE OF RM CY ET NT HR HI IN AN A PE 00 09 09 00 59 1 RI 79 RI Ac RM 47 -0 -2 .0 TE 89 SH ti ET 25 8- 4- 00 98 ER ve HR 24 20 20 AI IN 09 09 D RI 7 PH CH 1% AR AR M D LO #3 TI 93 ON 8 RI 50 09 09 00 60 30 EA 14 CO Ac SP 45 -1 -[address] 27 OP ti ER 80 5- 4- 00 SI 11 ER ve ID 59 20 20 DE ON 26 09 09 ADALBERTO E 0 PH HN 1 AR G MG MA CY TA BL OF ET CY NT HI AN A AD 54 09 09 00 30 30 EA 14 RI Ac DE 09 -1 -[address] 27 SH ti RA 20 5- 4- 00 SI 14 ER ve LL 38 20 20 DE 90 09 09 RI XR 1 PH CH AR AR 25 MA D CY MG OF CA CY PS NT UL HI E AN A AD 54 08 08 00 30 30 CL 19 MU Ac DE 09 -1 -2 .0 IN 90 LB ti RA 20 8- 7- 00 IC 63 ER ve LL 38 20 20 RY 90 09 09 PH XR 1 AR BR MA IA 25 CY N T MG CA PS UL E PE 00 08 08 00 59 1 RI 79 RI Ac RM 47 -2 -2 .0 TE 64 SH ti ET 25 0- 7- 00 77 ER ve HR 24 20 20 AI IN 26 09 09 D RI 7 PH CH 1% AR AR M D LO #3 TI 93 ON 8 RI 50 08 08 00 60 30 CL 19 MU Ac SP 45 -1 -2 .0 IN 90 LB ti ER 80 8- 7- 00 IC 64 ER ve ID 59 20 20 RY ON 09 09 PH E 0 AR BR 1 MA IA MG CY N T TA BL ET PE 00 08 08 00 [address] Ac RM 47 -0 -1 .0 TE 41 EP ti ET 25 1- 3- 00 37 HE ve HR 24 20 20 AI NS IN 26 09 09 D 7 PH DO 1% AR N M R LO #3 TI 93 ON 8 AD 54 07 07 00 30 30 CL 19 MU Ac DE 09 -2 -3 .0 IN 74 LB ti RA 20 0- 0- 00 IC 82 ER ve LL 38 20 20 RY 90 09 09 PH XR 1 AR BR MA IA 25 CY N T MG CA PS UL E RI 50 01 07 05 60 30 EA 11 CO Ac SP 45 -1 -[address] 15 OP ti ER 80 9- 6- 00 SI 63 ER ve ID 59 20 20 DE ON 09 09 ADALBERTO E 0 PH HN 1 AR G MG MA CY TA BL OF ET CY NT HI AN A AD 54 06 07 00 30 30 EA 13 MU Ac DE 09 -2 -[address] 27 LB ti RA 20 5- 2- 00 SI 30 ER ve LL 38 20 20 DE RY 90 09 09 XR 1 PH BR AR IA 25 MA N CY T MG OF CA CY PS NT UL HI E AN A RI 50 01 06 04 60 30 EA 11 CO Ac SP 45 -1 -[address] 15 OP ti ER 80 9- 8- 00 SI 63 ER ve ID 59 20 20 DE ON 09 09 ADALBERTO E 0 PH HN 1 AR G MG MA CY TA BL OF ET CY NT HI AN A AD 54 05 06 00 30 30 CL 19 MU Ac DE 09 -2 -0 .0 IN 41 LB ti RA 20 1- 4- 00 IC 86 ER ve LL 38 20 20 RY 90 09 09 PH XR 1 AR BR MA IA 25 CY N T MG CA PS UL E LI 60 05 06 00 60 1 EA 12 MU Ac ND 43 -1 -[address] 81 LB ti AN 20 9- 4- 00 SI 40 ER ve E 83 20 20 DE RY 1% 46 09 09 0 PH BR SH AR IA AM MA N PO CY T O OF CY NT HI AN A RI 50 01 05 03 60 30 EA 11 CO Ac SP 45 -1 -[address] 15 OP ti ER 80 9- 1- 00 SI 63 ER ve ID 59 20 20 DE ON 09 09 ADALBERTO E 0 PH HN 1 AR G MG MA CY TA BL OF ET CY NT HI AN A AD 54 04 05 00 30 30 CL 19 MU Ac DE 09 -2 -0 .0 IN 23 LB ti RA 20 2- 7- 00 IC 86 ER ve LL 38 20 20 RY 90 09 09 PH XR 1 AR BR MA IA 25 CY N T MG CA PS UL E RI 50 01 04 02 60 30 EA 11 CO Ac SP 45 -1 -[address] 15 OP ti ER 80 9- 9- 00 SI 63 ER ve ID 59 20 20 DE ON 09 09 ADALBERTO E 0 PH HN 1 AR G MG MA CY TA BL OF ET CY NT HI AN A AD 54 03 04 00 30 30 EA 12 MU Ac DE 09 -2 -[address] 00 LB ti RA 20 1- 9- 00 SI 79 ER ve LL 38 20 20 DE RY 90 09 09 XR 1 PH BR AR IA 25 MA N CY T MG OF CA CY PS NT UL HI E AN A RI 50 01 03 01 60 30 EA 11 CO Ac SP 45 -1 -[address] 15 OP ti ER 80 9- 2- 00 SI 63 ER ve ID 59 20 20 DE ON 09 09 ADALBERTO E 0 PH HN 1 AR G MG MA CY TA BL OF ET CY NT HI AN A DO 00 02 02 00 20 10 CL 18 CL Ac XY 14 -1 -2 .0 IN 75 AR ti CY 33 2- 6- 00 IC 07 KE ve CL 14 20 20 IN 25 09 09 PH DE E 0 AR RE HY MA K CL CY J AT E 10 0 MG CA P NA 53 02 02 00 60 30 CL 18 CL Ac LA 74 -1 -2 .0 IN 75 AR ti OX 60 2- 6- 00 IC 08 KE ve EN 19 20 20 00 09 09 PH DE 50 1 AR RE 0 MA K MG CY J TA BL ET AD 54 02 02 00 30 30 CL 18 MU Ac DE 09 -1 -2 .0 IN 79 LB ti RA 20 8- 6- 00 IC 07 ER ve LL 38 20 20 RY 90 09 09 PH XR 1 AR BR MA IA 25 CY N T MG CA PS UL E RI 50 01 02 00 60 30 EA 11 CO Ac SP 45 -1 -[address] 15 OP ti ER 80 9- 2- 00 SI 63 ER ve ID 59 20 20 DE ON 09 09 ADALBERTO E 0 PH HN 1 AR G MG MA CY TA BL OF ET CY NT HI AN A AD 54 01 01 00 30 30 EA 11 CO Ac DE 09 -1 -[address] 15 OP ti RA 20 9- 0- 00 SI 62 ER ve LL 38 20 20 DE 90 09 09 ADALBERTO XR 1 PH HN AR G 25 MA CY MG OF CA CY PS NT UL HI E AN A RI 50 08 01 05 12 30 EA 98 MU Ac SP 45 -0 -[address] 99 LB ti ER 80 7- 5- 00 SI 72 ER ve ID 59 20 20 0 DE RY ON 16 08 09 E 0 PH BR 0. AR IA 5 MA N MG CY T TA OF BL CY ET NT HI AN A NA 00 01 01 00 60 30 WA 70 CL Ac LA 09 -0 -1 .0 L- 03 AR ti OX 30 9- 5- 00 MA 21 KE ve EN 14 20 20 RT 5 91 09 09 DE 50 0 PH RE 0 AR K MG MA J CY TA BL #5 ET 91 00 01 01 00 9. 30 WA 70 GA Ac 78 -0 -1 00 L- 02 IN ti 15 4- 5- 0 MA 59 EY ve 25 20 20 RT 5 73 09 09 HI 1 PH CH AR AE MA L CY S #5 91 AD 54 12 01 00 30 30 EA 10 NO Ac DE 09 -2 -[address] 77 RF ti RA 20 0- 1- 00 SI 26 LE ve LL 38 20 20 DE ET 90 08 09 R XR 1 PH AR HE 25 MA NR CY Y MG OF CA CY PS NT UL HI E AN A RI 50 08 12 04 12 30 EA 98 MU Ac SP 45 -0 -[address] 99 LB ti ER 80 7- 8- 00 SI 72 ER ve ID 59 20 20 0 DE RY ON 16 08 08 E 0 PH BR 0. AR IA 5 MA N MG CY T TA OF BL CY ET NT HI AN A AD 54 11 12 00 30 30 EA 10 MU Ac DE 09 -2 -[address] 36 LB ti RA 20 0- 4- 00 SI 21 ER ve LL 38 20 20 DE RY 90 08 08 XR 1 PH BR AR IA 25 MA N CY T MG OF CA CY PS NT UL HI E AN A RI 50 08 11 03 12 30 EA 98 MU Ac SP 45 -0 -[address] 99 LB ti ER 80 7- 0- 00 SI 72 ER ve ID 59 20 20 0 DE RY ON 16 08 08 E 0 PH BR 0. AR IA 5 MA N MG CY T TA OF BL CY ET NT HI AN A AD 54 10 11 00 30 30 EA 99 MU Ac DE 09 -1 -[address] 91 LB ti RA 20 9- 7- 00 SI 70 ER ve LL 38 20 20 DE RY 90 08 08 XR 1 PH BR AR IA 25 MA N CY T MG OF CA CY PS NT UL HI E AN A RI 50 08 10 02 12 30 EA 98 No Ac SP 45 -0 -[address] 99 t ti ER 80 7- 3- 00 SI 72 Av ve DA 30 20 20 0 DE ai L 20 08 08 la 0. 6 PH bl 5 AR e MG MA CY TA BL OF ET CY NT HI AN A 58 10 10 [address] Ac 17 -1 -2 .0 L- 91 EP ti 70 6- 3- 00 MA 65 HE ve 83 20 20 RT 4 NS 53 08 08 7 PH KE AR MA N CY C #5 91 AD 54 09 10 00 30 30 EA 99 No Ac DE 09 -2 -[address] 55 t ti RA 20 0- 9- 00 SI 32 Av ve LL 38 20 20 DE ai 90 08 08 la XR 1 PH bl AR e 25 MA CY MG OF CA CY PS NT UL HI E AN A RI 50 08 09 01 12 30 EA 98 No Ac SP 45 -0 -[address] 99 t ti ER 80 7- 6- 00 SI 72 Av ve DA 30 20 20 0 DE ai L 20 08 08 la 0. 6 PH bl 5 AR e MG MA CY TA BL OF ET CY NT HI AN A AD 54 08 08 00 30 30 EA 99 No Ac DE 09 -2 -[address] 16 t ti RA 20 1- 8- 00 SI 32 Av ve LL 38 20 20 DE ai 90 08 08 la XR 1 PH bl AR e 25 MA CY MG OF CA CY PS NT UL HI E AN A LI 60 08 08 00 60 1 EA 99 No Ac ND 43 -1 -[address] 12 t ti AN 20 8- 8- 00 SI 52 Av ve E 83 20 20 DE ai 1% 46 08 08 la 0 PH bl SH AR e AM MA PO CY O OF CY NT HI AN A RI 50 08 08 00 12 30 EA 98 No Ac SP 45 -0 -[address] 99 t ti ER 80 7- 4- 00 SI 72 Av ve DA 30 20 20 0 DE ai L 20 08 08 la 0. 6 PH bl 5 AR e MG MA CY TA BL OF ET CY NT HI AN A AD 54 07 08 00 30 30 EA 98 No Ac DE 09 -1 -[address] 77 t ti RA 20 9- 1- 00 SI 88 Av ve LL 38 20 20 DE ai 90 08 08 la XR 1 PH bl AR e 25 MA CY MG OF CA CY PS NT UL HI E AN A RI 50 01 07 05 12 30 EA 96 No Ac SP 45 -2 -[address] 44 t ti ER 80 1- 7- 00 SI 56 Av ve DA 30 20 20 0 DE ai L 20 08 08 la 0. 6 PH bl 5 AR e MG MA CY TA BL OF ET CY NT HI AN A AD 54 06 07 00 30 30 EA 98 No Ac DE 09 -2 -[address] 44 t ti RA 20 0- 3- 00 SI 68 Av ve LL 38 20 20 DE ai 90 08 08 la XR 1 PH bl AR e 25 MA CY MG OF CA CY PS NT UL HI E AN A RI 50 01 06 04 12 30 EA 96 No Ac SP 45 -2 -[address] 44 t ti ER 80 1- 2- 00 SI 56 Av ve DA 30 20 20 0 DE ai L 20 08 08 la 0. 6 PH bl 5 AR e MG MA CY TA BL OF ET CY NT HI AN A AD 54 05 06 00 30 30 EA 98 No Ac DE 09 -1 -[address] 02 t ti RA 20 7- 5- SI 84 Av ve LL 38 20 20 DE ai 90 08 08 la XR 1 PH bl AR e 25 MA CY MG OF CA CY PS NT UL HI E AN A CE 00 05 05 00 14 7 RI 73 No Ac PH 09 -0 -2 .0 TE 18 t ti AL 33 4- 2- 00 19 Av ve EX 14 20 20 AI ai IN 70 08 08 D la 1 PH bl 50 AR e 0 M MG #3 93 CA 8 PS UL E RI 50 01 05 03 12 30 EA 96 No Ac SP 45 -2 -[address] 44 t ti ER 80 1- 2- 00 SI 56 Av ve DA 30 20 20 0 DE ai L 20 08 08 la 0. 6 PH bl 5 AR e MG MA CY TA BL OF ET CY NT HI AN A DE 51 05 05 00 15 30 RI 73 No Ac SO 67 -0 -0 .0 TE 14 t ti XI 21 1- 8- 00 60 Av ve ME 27 20 20 AI ai TA 10 08 08 D la SO 1 PH bl NE AR e M 0. #3 05 93 % 8 CR EA M AD 54 04 04 00 30 30 EA 97 No Ac DE 09 -1 -[address] 67 t ti RA 20 8- 4- 00 SI 01 Av ve LL 38 20 20 DE ai 90 08 08 la XR 1 PH bl AR e 25 MA CY MG OF CA CY PS NT UL HI E AN A RI 50 01 04 02 12 30 EA 96 No Ac SP 45 -2 -[address] 44 t ti ER 80 1- 4- 00 SI 56 Av ve DA 30 20 20 0 DE ai L 20 08 08 la 0. 6 PH bl 5 AR e MG MA CY TA BL OF ET CY NT HI AN A RI 50 01 04 01 12 30 EA 96 No Ac SP 45 -2 -[address] 44 t ti ER 80 1- 7- 00 SI 56 Av ve DA 30 20 20 0 DE ai L 20 08 08 la 0. 6 PH bl 5 AR e MG MA CY TA BL OF ET CY NT HI AN A AD 54 03 04 00 30 30 EA 97 No Ac DE 09 -1 -[address] 28 t ti RA 20 9- 7- 00 SI 16 Av ve LL 38 20 20 DE ai 90 08 08 la XR 1 PH bl AR e 25 MA CY MG OF CA CY PS NT UL HI E AN A AD 54 02 03 00 30 30 EA 96 No Ac DE 09 -1 -[address] 84 t ti RA 20 8- 6- 00 SI 82 Av ve LL 38 20 20 DE ai 90 08 08 la XR 1 PH bl AR e 25 MA CY MG OF CA CY PS NT UL HI E AN A AD 54 01 03 00 30 30 EA 96 No Ac DE 09 -1 -[address] 42 t ti RA 20 9- 5- 00 SI 40 Av ve LL 38 20 20 DE ai 90 08 08 la XR 1 PH bl AR e 25 MA CY MG OF CA CY PS NT UL HI E AN A 58 01 03 00 51 30 WA 69 No Ac 17 -1 -2 .0 L- 56 t ti 70 6- 5- 00 MA 50 Av ve 83 20 20 RT 7 ai 53 08 08 la 7 PH bl AR e MA CY #5 91 68 01 03 00 60 1 EA 96 No Ac 18 -2 -[address] 44 t ti 80 1- 5- 00 SI 57 Av ve 93 20 20 DE ai 19 08 08 la 0 PH bl AR e MA CY OF CY NT HI AN A RI 50 01 03 00 12 30 EA 96 No Ac SP 45 -2 -[address] 44 t ti ER 80 1- 5- 00 SI 56 Av ve DA 30 20 20 0 DE ai L 20 08 08 la 0. 6 PH bl 5 AR e MG MA CY TA BL OF ET CY NT HI AN A Immunization Name Date Rout CVX Reac Dose Comm Prov Is Faci e tion ent ider Refu lity Give sed n CCII 10-1 153 [facility] No [facility] V3 4-20 O O VACC 13 DIST DIST INE RICT RICT PRES [facility] HLTH TIVE DEPT DEPT FREE LYNN LYNN 0.5 ML IM USE HEPA 06-2 52 WILNER No WILNER 0-20 HARIKA HARIKA VACC 13 CO CO INE HEAL HEAL ADUL TH TH T CENT CENT DOSE ER ER FOR INTR AMUS CULA R USE HEPA 12-0 52 WILNER No WILNER 5-20 HARIKA HARIKA VACC 12 CO CO INE HEAL HEAL ADUL TH TH T CENT CENT DOSE ER ER FOR INTR AMUS CULA R USE IIV3 10-1 141 WILNER No WILNER 2-20 HARIKA HARIKA VACC 11 CO CO INE HEAL HEAL SPLI TH TH T CENT CENT VIRU ER ER S 0.5 ML DOSA GE IM USE IIV3 10-1 141 WILNER No WILNER 1-20 HARIKA HARIKA VACC 10 CO CO INE HEAL HEAL SPLI TH TH T CENT CENT VIRU ER ER S 0.5 ML DOSA GE IM USE IIV3 10-0 141 [facility] No [facility]/ 2-20 HARIKA CO VACC 09 CO HEAL INE HEAL TH SPLI TH CENT T CENT RAL VIRU ER BANK S 0.5 ACCT ML DOSA GE IM USE IIV3 11- 141 [facility] No DHS/ 0-20 HARIKA CO VACC 08 CO HEAL INE HEAL TH SPLI TH CENT T CENT RAL VIRU ER BANK S 0.5 ACCT ML DOSA GE IM USE Procedures Procedure DOS Code Location Performer Comment [facility] [address] [facility] 7 [facility] ER JR TRACHOMAT IS AMPLIFIED PROBE TQ [facility] [address] [facility], PICKLESIM NEISSERIA 7 LLC ER JR GONORRHOE AE AMPLIFIED PROBE TQ CYTP C/V 19463 [facility] AUT[facility]IN 7 LLC ER JR LYR PREPJ SCR MNL RESCR PHYS OPHTH 17696 [facility] XM&EVAL COMPRHNSV ESTAB PT 1/> APPL 93362 [place] [facility] MODALITY 6 AMA 1/> AREAS [facility] TRACTION TIC CENTE MECHANICA L APPL 58471 [place] [facility] MODALITY 6 AMA 1/> AREAS CHIROPRAC ELEC TIC CENTE STIMJ UNATTENDE D CHIROP[facility]AC 73419 [place] [facility] TIC 6 AMA MANIPLTV CHIROP[facility]AC TX TIC CENTE EXTRASPIN AL 1/> REGION MANUAL 66452 [place] [facility] THERAPY 6 AMA TQS 1/> CHIROP[facility]AC REGIONS TIC CENTE EACH 15 MINUTES CHIROPRAC 27244 [place] [facility] TIC 6 AMA MANIPULAT CHIROPRAC JESSICA TX TIC CENTE SPINAL 3-4 REGIONS RADEX 71787 [place] [facility] SPINE 6 AMA CERVICAL CHIROPRAC 2 OR 3 TIC CENTE VIEWS RADEX 34568 [place] [facility] SPINE 6 AMA LUMBOSACR CHIROPRAC AL 2/3 TIC CENTE VIEWS IM ADM 69882 MAISHA FERRERA PRQ ID 6 [facility] SUBQ/IM INC INC NJXS 1 VACCINE SIMPLE 89030 MAISHA FERRERA REPAIR 6 [facility] F/E/E/N/L INC INC /M 2.5CM/< SIMPLE 96887 RYAN DONIS REPAIR 6 PHYSICIAN DELMA F/E/E/N/L S, PLLC /M 2.5CM/< MRI ANY 16149 [place] ALL JT LOWER 6 MEDICAL EXTREM IMAGING W/[place] [address] [place] ALL ABDOMEN & 6 MEDICAL PELVIS IMAGING W/O ASS CONTRAST MATERIAL RADIOLOGI 14506 [place] C 6 MEDICAL BREANNE EXAMINATI IMAGING ON KNEE 3 ASS VIEWS RADEX 39126 [facility] ANKLE 6 MEDICAL BREANNE COMPLETE IMAGING MINIMUM 3 ASS VIEWS CRTCHS E0114 [facility] 6 TECHNOLOG TECHNOLOG OTH THAN IES INC IES INC WOOD PAIR PAD TIP&HNDGR IP CYTP C/V 06861 [facility] 6 LLC ER JR SANTY LYR PREPJ SCR MNL RESCR PHYS URINE 13097 [facility] 6 PHYSICIAN PHYSICIAN TEST S GROUP S GROUP VISUAL COLOR CMPRSN METHS RADEX 30200 [facility] ANKLE 6 MEDICAL COMPLETE IMAGING MINIMUM 3 ASS VIEWS RADIOLOGI 31555 [facility] C 6 MEDICAL EXAMINATI IMAGING ON KNEE 3 ASS VIEWS RADIOLOGI 03537 [facility] C 6 MEDICAL EXAMINATI IMAGING ON CHEST ASS SINGLE VIEW FRONTAL RADIOLOGI 81502 [facility] C 6 MEDICAL EXAMINATI IMAGING ON PELVIS ASS 1/2 VIEWS RADIOLOGI 40504 [facility] C 6 MEDICAL EXAMINATI IMAGING ON TIBIA ASS & [place]UL[place] [address] [place] [address] [facility] HEAD/BRAI 6 MEDICAL N W/[place] [address] [facility] R[facility] CERVICAL 6 MEDICAL SPINE W/[place] [address] [facility] ABDOMEN & 6 MEDICAL PELVIS IMAGING W/CONTRAS ASS T MATERIAL RADIOLOGI 17749 [facility] V[facility] ALL C EXAM 6 MEDICAL CHEST 2 IMAGING VIEWS ASS FRONTAL&L ATERAL OPHTH 90410 [facility] MEDICAL 6 XM&EVAL COMPRHNSV ESTAB PT 1/> GROUND A0425 [facility] MILEAGE 6 AMBULANCE AMBULANCE PER SERVICE SERVICE STATUTE MILE AMBULANCE A0429 [facility] SERVICE 6 AMBULANCE AMBULANCE BLS SERVICE SERVICE EMERGENCY TRANSPORT GROUND A0425 TRANS TRANS MILEAGE 6 STAR STAR PER AMBULANCE [place] [address] [facility] AMYLASE 5 [facility] MEDICAL MEDICAL CE CE BLOOD 52424 [facility] COUNT 5 [facility] COMPLETE MEDICAL MEDICAL AUTO&AUTO CE CE DIFRNTL WBC COMPREHEN 41863 [facility] SIVE 5 [facility] METABOLIC [place] [address] [facility] LIPASE 5 [facility] MEDICAL MEDICAL CE CE RADIOLOGI 12557 [facility] C 5 [facility] REGIONAL EXAMINATI MEDICAL MEDICAL ON TIBIA CE CE & FIBULA 2 VIEWS INJECTION J2550 SARY OKEEFE 5 NELL NELL PROMETHAZ INE HCL UP TO 50 MG LOCM Q9966 MAISHA FERRERA 200-299 5 [facility] MG/ML INC INC IODINE CONCENTRA TION PER ML INJECTION J1030 MAISHA FERRERA 5 [facility] METHYLPRE INC INC DNISOLONE ACETATE 40 MG INJECTION J1040 MAISHA FERRERA 5 [facility] METHYLPRE INC INC DNISOLONE ACETATE 80 MG URINE 73238 MAISHA FERRERA 5 [facility] TEST INC INC VISUAL [place]X 72043 MADAR BUX BUX ANJ DX/THER 5 SBST EPIDURAL/ SUBARACH LUMBAR/SA CRAL CT LUMBAR 16117 [facility] SPINE 5 MEDICAL W/O IMAGING CONTRAST ASS MATERIAL RADIOLOGI 50117 [facility] C 5 MEDICAL EXAMINATI IMAGING ON TIBIA ASS & FIBULA 2 VIEWS CYTP C/V 73091 [facility], [facility] 5 LLC ER JR SANTY LYR PREPJ SCR MNL RESCR PHYS COLPOSCOP 25869 [facility] MARY Y CERVIX 5 PHYSICIAN SOFIE ENDOCERVI S GROUP SOHAM CURETTAGE OPHTH 13490 [facility]Y [facility] MEDICAL 5 XM&EVAL COMPRHNSV ESTAB PT 1/> RADIOLOGI 13511 [place] [facility] EXAM 4 MEDICAL BREANNE CHEST 2 IMAGING VIEWS ASS FRONTAL&L ATERAL RADEX 18167 [place] HAND 4 MEDICAL BREANNE MINIMUM 3 IMAGING VIEWS ASS COLPOSCOP 91754 MARY HERNANDEZ Y CERVIX 4 SOFIE SOFIE ENDOCERVI SOHAM CURETTAGE CYTP C/V 75310 [facility], [facility] 4 LLC ER JR SANTY LYR PREPJ SCR MNL RESCR PHYS URINE 61569 [facility] HERNANDEZ 4 SOFIE SOFIE TEST VISUAL COLOR CMPRSN METHS INSERTION 99343 MARY HERNANDEZ 4 SOFIE SOFIE INTRAUTER INE DEVICE IUD LEVONORGE J7302 MARY HERNANDEZ STREL-RLS 4 SOFIE SOFIE E INTRAUTER N CNTRACPT 52 MG URNLS DIP 72360 [facility] STICK/TAB [facility] DEPT LET RGNT LYNN LYNN NON-AUTO W/O MICRSCP CONTRACEP S4993 [facility] TIVE 4 [facility] PILLS FOR [facility] DEPT LYNN LYNN CONTROL URINE 93334 [facility] 4 [facility] TEST [facility] DEPT VISUAL LYNN LYNN COLOR CMPRSN METHS IADNA 20450 [facility] DE[facility] TRACHOMAT LYNN LYNN IS AMPLIFIED PROBE TQ INJECTION J1050 [facility] 4 [facility] MEDROXYPR [facility] DEPT OGESTERON LYNN LYNN E ACETATE 1 MG IADNA 21469 [facility] NE[facility]IA [facility] DE[facility] GONORRHOE LYNN LYNN AE AMPLIFIED PROBE TQ FITTING 41069 SCIFRES SCIFRES SPECTACLE 4 ANG ANG S XCPT APHAKIA MONOFOCAL SPHERE V2100 SCIFRES SCIFRES SINGLE 4 ANG ANG VISION PLANO +/- 4.00 PER LENS OPHTH 76498 SCIFRES SCIFRES MEDICAL 4 ANG ANG XM&EVAL COMPRHNSV ESTAB PT 1/> FRAMES V2020 SCIFRES SCIFRES PURCHASES 4 ANG ANG SCRATCH V2760 SCIFRES SCIFRES RESISTANT 4 ANG ANG COATING PER LENS LENS V2784 SCIFRES SCIFRES POLYCARBO 4 ANG ANG ZAINAB [place] [address] KENY KENY ABDOMEN & 4 BREANNE BREANNE PELVIS W/O CONTRAST MATERIAL ANTIBODY 00085 COMBINED COMBINED CHLAMYDIA 4 PHYSICIAN PHYSICIAN S LA S LA CUL BACT 86112 COMBINED COMBINED XCPT 4 PHYSICIAN PHYSICIAN URINE S LA S LA BLOOD/STO OL AEROBIC ISOL URINE 30763 MARY HERNANDEZ 4 SOFIE SOFIE TEST VISUAL COLOR CMPRSN METHS CYTP 71668 MAHONEY MAHONEY CERVICAL/ 4 NELL NELL VAGINAL REQ INTERP PHYSICIAN CYTP C/V 22172 MAHONEY MAHONEY AUTO THIN 4 NELL NELL LYR PREPJ SCR MNL RESCR PHYS IADNA 41794 MAHONEY MAHONEY PAPILLOMA 4 NELL NELL VIRUS HUMAN AMPLIFIED PROBE TQ COLPOSCOP 46214 MARY HERNANDEZ Y CERVIX 4 SOFIE SOFIE ENDOCERVI SOHAM CURETTAGE RADIOLOGI [address] [facility] C [facility] ON TIBIA & FIBULA 2 VIEWS NONEMERG A0120 FEDERATED FEDERATED TRNSPRT: 4 [facility] TRANSPORT TRANSPORT MTN ATION SER ATION SER AREA/OTH SYS NONEMERG A0120 FEDERATED FEDERATED TRNSPRT: 3 [facility] TRANSPORT TRANSPORT MTN ATION SER ATION SER AREA/OTH SYS NONEMERG A0120 FEDERATED FEDERATED TRNSPRT: 3 [facility] TRANSPORT TRANSPORT MTN ATION SER ATION SER AREA/OTH SYS NONEMERG A0120 FEDERATED FEDERATED TRNSPRT: 3 [facility] TRANSPORT TRANSPORT MTN ATION SER ATION SER AREA/OTH SYS NONEMERG A0120 FEDERATED FEDERATED TRNSPRT: 3 [facility] TRANSPORT TRANSPORT MTN ATION SER ATION SER AREA/OTH SYS PHYSICAL 73885 MAISHA FERRERA THERAPY 3 [facility] RE-EVALUA INC INC TION RADIOLOGI [address] [facility] C 3 [facility] ON TIBIA & FIBULA 2 VIEWS CCIIV3 30625 [facility] VACCINE 3 [facility] PRESERVAT [facility] DEPT HLTH DEPT JESSICA FREE LYNN LYNN 0.5 ML IM USE PHYSICAL 91449 MAISHA MAISHA THERAPY 3 [facility] RE-EVALUA INC INC TION NONEMERG A0120 LKLP CAC LKLP CAC TRNSPRT: 3 INC INC [facility]I-[facility] REGION 11 REGION 11 MTN AREA/OTH SYS NONEMERG A0120 LKLP CAC LKLP CAC TRNSPRT: 3 INC INC [facility] REGION 11 REGION 11 MTN AREA/OTH SYS COLPOSCOP 09849 [facility] Y CERVIX 3 [facility] & [place] [address] MAHONEY MAHONEY SURG 3 NELL NELL PATHOLOGY GROSS&DELMA ROSCOPIC EXAM CYTP 48526 MAHONEY MAHONEY CERVICAL/ 3 NELL NELL VAGINAL REQ INTERP PHYSICIAN CYTP C/V 52860 MAHONEY MAHONEY AUTO THIN 3 NELL NELL LYR PREPJ SCR MNL RESCR PHYS NONEMERG A0120 LKLP CAC LKLP CAC TRNSPRT: 3 INC INC [facility] REGION 11 REGION 11 MTN AREA/OTH SYS NONEMERG A0120 LKLP CAC LKLP CAC TRNSPRT: 3 INC INC [facility] REGION 11 REGION 11 MTN AREA/OTH SYS NONEMERG A0120 LKLP CAC LKLP CAC TRNSPRT: 3 INC INC [facility] REGION 11 REGION 11 MTN AREA/OTH SYS NONEMERG A0120 LKLP CAC LKLP CAC TRNSPRT: 3 INC INC [facility] REGION 11 REGION 11 MTN AREA/OTH SYS NONEMERG A0120 LKLP CAC LKLP CAC TRNSPRT: 3 INC INC [facility] REGION 11 REGION 11 MTN AREA/OTH SYS NONEMERG A0120 LKLP CAC LKLP CAC TRNSPRT: 3 INC INC [facility] REGION 11 REGION 11 MTN AREA/OTH SYS PHYSICAL 13606 MAISHA MAISHA THERAPY 3 [facility] EVALUATIO INC INC N [place]PAIR [address] [place] INTERMEDI 3 MEDICAL MEDICAL ATE SERV SERV S/A/T/E FOUNDATIO FOUNDATIO 7.6-12.5 N N CM ANES 11516 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 INTEG 3 RAN RAN EXTREMITI ES ANT TRUNK & PERINEUM NOS SBSQ 18324 [facility] GREENE 3 ERIN ERIN CARE/DAY 25 MINUTES RADIOLOGI 06897 KING SANDHYA KRAUSE SANDHYA C 3 EXAMINATI ON TIBIA & FIBULA 2 VIEWS RADIOLOGI 17041 JACQUELINE [facility] C 3 EXAMINATI ON CHEST SINGLE VIEW FRONTAL TX TIBL 85590 MOGHADAMI MOGHADAMI SHFT FX 3 AN DB AN DB IMED IMPLT W/WO SCREWS&/C ERCLA ANES OPEN 78116 STEYN PIE STEYN PIE 3 OSTEOTOMY /OSTEOPLA STY TIBIA&/FI BULA CLOS [address] [place] [address] [facility] TIBIA&FIB W/INTERNA L FIX FASCIOTOM [address] RADEX HIP 18660 NICKELS NICKELS 3 [place] UNILATERA L COMPLETE MINIMUM [address] [place] [address] MERHAR MERHAR THORACIC 3 GAR GAR SPINE W/[place] [address] RASLAU RASLAU HEAD/BRAI 3 FLA FLA N W/O CONTRAST MATERIAL RADIOLOGI 59260 NICKELS NICKELS C 3 [place] EXAMINATI ON FEMUR [address] LUMBAR [address] MERHAR MERHAR SPINE 3 GAR GAR W/O CONTRAST MATERIAL RADEX 69717 NICKELS NICKELS FOOT 3 [place] COMPLETE MINIMUM 3 VIEWS RADIOLOGI 70398 NICKELS NICKELS C 3 [place] EXAMINATI ON PELVIS 1/2 VIEWS RADIOLOGI 27378 KING SANDHYA KRAUSE SANDHYA C 3 EXAMINATI ON TIBIA & FIBULA 2 VIEWS AMB A0427 [facility] 3 AMBULANCE AMBULANCE ALS SERVICE SERVICE EMERGENCY TRANSPORT LEVEL 1 HEPA 27893 MAISHA FERRERA VACCINE 3 [facility] CENTER DOSE FOR INTRAMUSC ULAR USE URINE 72820 MAISHA FERRERA 3 [facility] TEST INC INC VISUAL COLOR CMPRSN METHS CULTURE 88875 MAISHA FERRERA BACTERIAL 3 [facility] INC INC QUANTTATI VE COLONY COUNT URINE URNLS DIP 02967 MAISHA FERRERA 3 [facility] STICK/TAB INC INC LET REAGENT AUTO MICROSCOP Y RADIOLOGI 31300 MAISHA FERRERA C EXAM 3 [facility] CHEST 2 INC INC VIEWS FRONTAL&[place] [address] PICKLESIM PICKLESIM SURG 3 ER JR SANTY ER JR SANTY PATHOLOGY GROSS&DELMA ROSCOPIC EXAM CYTP C/V 06634 PICKLESIM PICKLESIM AUTO THIN 3 ER JR SANTY ER JR SANTY LYR PREPJ SCR MNL RESCR PHYS COLPOSCOP 39889 HERNANDEZ HERNANDEZ Y CERVIX 3 SOFIE SOFIE ENDOCERVI SOHAM CURETTAGE IADNA 98841 PICKLESIM PICKLESIM PAPILLOMA 3 ER JR SANTY ER JR SANTY VIRUS HUMAN AMPLIFIED PROBE TQ CYTP 86093 PICKLESIM PICKLESIM CERVICAL/ 3 ER JR SANTY ER JR SANTY VAGINAL REQ INTERP PHYSICIAN HEPA 75367 MAISHA FERRERA VACCINE 2 [facility] CENTER DOSE FOR INTRAMUSC ULAR USE CYTP C/V [address] AUTO THIN 2 & LYR CYTOLOGY PREPJ SCR LAB MNL RESCR PHYS CYTP [address] CERVICAL/ 2 & VAGINAL CYTOLOGY REQ LAB INTERP PHYSICIAN IADNA [address] PAPILLOMA 2 & VIRUS CYTOLOGY HUMAN LAB AMPLIFIED PROBE TQ COLPOSCOP 12399 HERNANDEZ HERNANDEZ Y CERVIX 2 SOFIE SOFIE ENDOCERVI SOHAM CURETTAGE REMOVAL 23597 HERNANDEZ HERNANDEZ NON-BIODE 2 SOFIE SOFIE GRADABLE DRUG DELIVERY IMPLANT NONEMERG A0120 LKLP LKLP TRNSPRT: 2 COMMUNITY COMMUNITY [place] ACTION ACTION MTN AREA/OTH SYS IAADIADOO 63655 KRISHNA KRISHNA 2 NELL NELL STREPTOCO CCUS GROUP A COMPREHEN 29650 MAISHA FERRERA SIVE 2 [facility] [place] [address] MAISHA FERRERA AMYLASE 2 [facility] INC INC URINE 67013 MAISHA FERRERA 2 [facility] TEST INC [place] [address] MAISHA FERRERA ABDOMEN & 2 [facility] PELVIS INC INC W/O CONTRAST MATERIAL BLOOD 24185 MAISHA MAISHA COUNT 2 [facility] COMPLETE INC INC AUTO&[place] [address] MAISHA FERRERA LIPASE 2 [facility] INC INC URNLS DIP 43325 MAISHA FERRERA 2 [facility] STICK/TAB INC [place] [address] EWY RUSSEL EWY RUSSEL HEAD/BRAI 2 N W/O CONTRAST MATERIAL IAADIADOO 92432 MARCELLA MARCELLA 2 CRY CRY STREPTOCO CCUS GROUP A OPHTH 20641 [facility] MEDICAL 2 DENZEL DENZEL XM&EVAL COMPRE NEW PT 1/> VST LENS V2784 [facility] POLYCARBO 2 DENZEL DENZEL ZAINAB OR EQUAL ANY INDEX PER LENS 1 VISN V2103 [facility] 2 DENZEL DENZEL TO+/-4.00 D SPHER 0.12-2.00 D CYL EA FRAMES V2020 [facility] PURCHASES 2 DENZEL DENZEL DETERMINA 95825 [facility] TION 2 DENZEL DENZEL REFRACTIV E STATE FITTING 96033 [facility] SPECTACLE 2 DENZEL DENZEL S XCPT APHAKIA MONOFOCAL VISUAL 66233 [facility] FIELD XM 2 DENZEL DENZEL UNI/BI W/INTERP EXTENDED EXAM SBSQ 62953 [facility] OBSERVATI 2 ANT ANT ON CARE/[place] [address] [place] [address] [place] ABDOMEN & 2 MEDICAL DENIZ PELVIS SERV W/[place] [address] [place] ABDOMINAL 2 MEDICAL DENIZ REAL SERV TIME FOUNDATIO W/IMAGE N LIMITED AMB A0427 [facility] SERVICE 2 [facility] EMERGENCY EMS EMS TRANSPORT LEVEL 1 RADEX 92473 THU THU HUMERUS 2 DENIZ DENIZ MINIMUM 2 VIEWS RADEX 51911 THU THU FOREARM 2 2 DENIZ DENIZ VIEWS RADEX 94476 THU THU WRIST 2 DENIZ DENIZ COMPLETE MINIMUM 3 VIEWS RADEX 60364 THU THU SHOULDER 2 DENIZ DENIZ COMPLETE MINIMUM 2 VIEWS RADEX 97610 THU THU ELBOW 2 2 DENIZ DENIZ VIEWS RADIOLOGI 31571 THU THU C 2 DENIZ DENIZ EXAMINATI ON PELVIS 1/[address] [place] [address] [place] TH[place] HEAD/BRAI 2 MEDICAL DENIZ N W/O SERV CONTRAST FOUNDATIO MATERIAL N RADIOLOGI 74437 THU THU C 2 DENIZ DENIZ EXAMINATI [place] [address] [place] THORACIC 2 MEDICAL DENIZ SPINE W/[place] [address] [place] ANGIOGRAP 2 MEDICAL DENIZ HY CHEST SERV W/CONTRAS FOUNDATIO T/NONCONT N RAST RADEX 86800 THU THU HAND 2 DENIZ DENIZ MINIMUM [address] LUMBAR [address] [place] THU SPINE 2 MEDICAL DENIZ W/[place] [address] [place]U CERVICAL 2 MEDICAL DENIZ SPINE W/O SERV CONTRAST FOUNDATIO MATERIAL N GROUND A0425 [facility] STATUTE EMS EMS MILE INITIAL 59449 JOLANTA STOVER OBSERVATI 2 AND AND ON CARE/DAY 50 MINUTES NONEMERG A0120 LKLP LKLP TRNSPRT: 1 COMMUNITY COMMUNITY [place] ACTION N MTN AREA/OTH SYS URNLS DIP 70969 MAISHA FERRERA 1 [facility] STICK/TAB INC INC LET REAGENT AUTO MICROSCOP Y IADNA 67653 MAISHA FERRERA CHLAMYDIA 1 [facility] INC INC TRACHOMAT IS AMPLIFIED PROBE TQ IADNA 56916 MAISHA FERRERA NEISSERIA 1 [facility] INC INC GONORRHOE AE AMPLIFIED PROBE TQ URINE 45394 MAISHA FERRERA 1 [facility] TEST INC INC VISUAL COLOR CMPRSN METHS CYTP C/V 78142 PATHOLOGY PATHOLOGY AUTO THIN 1 & & LYR CYTOLOGY CYTOLOGY PREPJ SCR LAB LAB MNL RESCR PHYS CYTP 14386 PATHOLOGY PATHOLOGY CERVICAL/ 1 & & VAGINAL CYTOLOGY CYTOLOGY REQ LAB LAB INTERP PHYSICIAN IADNA 83296 PATHOLOGY PATHOLOGY NEISSERIA 1 & & CYTOLOGY CYTOLOGY GONORRHOE LAB LAB AE AMPLIFIED PROBE TQ IADNA 01726 PATHOLOGY PATHOLOGY CHLAMYDIA 1 & & CYTOLOGY CYTOLOGY TRACHOMAT LAB [place] [address] CHIPPS PICKLESIM SURG 1 LILY & ER [facility] PATHOLOGY DUBILIER GROSS&DELMA ROSCOPIC EXAM COLPOSCOP 94043 [facility] HER[facility] Y CERVIX 1 [facility] BX CERVIX CLINIC OF & ERIN ENDOCRV CURRETAGE NONEMERG A0120 LKLP LKLP TRNSPRT: 1 [facility] [place] ACTION N [facility] AREA/OTH SYS NONEMERG A0120 LKLP LKLP TRNSPRT: 1 [facility] [place] [place] ACTION N MEN AREA/OTH SYS IIV3 33336 MAISHA FERRERA VACCINE 1 [facility] CENTER CENTER VIRUS 0.5 ML DOSAGE IM USE NONEMERG A0120 LKLP LKLP TRNSPRT: 1 [facility] [place] [place] ACTION N MTN AREA/OTH SYS NONEMERG A0120 LKLP LKLP TRNSPRT: 1 [facility] [place] [place] ACTION N MTN AREA/OTH SYS NONEMERG A0120 LKLP LKLP TRNSPRT: 1 [facility] [place] [place] ACTION N MTN AREA/OTH SYS NONEMERG A0120 LK LK TRNSPRT: 1 [facility] [place] [place] ACTION N [facility] SYS NONEMERG A0120 LK LK TRNSPRT: 1 [facility] [place] [place] ACTION N [facility] SYS NONEMERG A0120 LK LK TRNSPRT: 1 [facility] [place] [place] ACTION N [facility] SYS ANALGESIA D9230 CHANDA DMD CHANDA DMD 1 EPISCOPALIAN EPISCOPALIAN ANXIOLYSI S INHALATIO N OF NITROUS OXIDE ANALGESIA D9230 CHANDA DMD CHANDA DMD 1 EPISCOPALIAN EPISCOPALIAN ANXIOLYSI S INHALATIO N OF NITROUS OXIDE NONEMERG A0120 [facility]: 1 [facility] [place] [place] ACTION N [facility] SYS NONEMERG A0120 [facility] TRNSPRT: 1 [facility] [place] [place] ACTION N [facility] SYS ANALGESIA D9230 CHANDA DMD CHANDA DMD 1 EPISCOPALIAN EPISCOPALIAN ANXIOLYSI S INHALATIO N OF NITROUS OXIDE MOLECULAR 98040 [facility] QUEST 1 DIAGNOSTI DIAGNOSTI DIAGNOSTI , INC. , INC. CS INTERPRET ATION & REPORT MUTATION 28189 [facility] ID 1 DIAGNOSTI DIAGNOSTI ENZYMATIC , INC. , INC. LIG/PRIME R XTN 1 SGM EA MOLECULAR 90161 [facility] DX 1 DIAGNOSTI DIAGNOSTI AMPLIFICA , INC. , INC. TION TARGET EA SEQUENCE MOLEC 14103 [facility] SEP&ID HI 1 DIAGNOSTI DIAGNOSTI RESOLU , INC. , INC. TQ EACH NUCLEIC ACID PREP MOLEC 18141 [facility] ISOL/XTRJ 1 DIAGNOSTI DIAGNOSTI HP , INC. , INC. NUCLEIC ACID EA TYPE ANALGESIA D9230 CHANDA DMD CHANDA DMD 1 EPISCOPALIAN EPISCOPALIAN ANXIOLYSI S INHALATIO N OF NITROUS OXIDE NONEMERG A0120 [facility] TR[facility]: 1 [facility] [place] [place] ACTION N [facility] SYS OPHTH 54418 JAMES CONROY MEDICAL 1 VISION ANG XM&EVAL COMPRHNSV ESTAB PT 1/> FITTING 49153 JAMES CONROY SPECTACLE 1 VISION ANG S XCPT APHAKIA MONOFOCAL FRAMES V2020 JAMES CONROY PURCHASES 1 VISION ANG 1 VISN V2103 JAMES CONROY PLANO 1 VISION ANG TO+/-4.00 D SPHER 0.12-2.00 D CYL EA US BREAST 42303 [facility] REAL 1 MEDICAL BREANNE TIME IMAGING W/IMAGE ASS DOCUMENTA TION NONEMERGE A0100 [facility] NCY 1 COMMUNITY TRANSPORT ACTION ATION; [place]AXI BLOOD 67872 MAISHA FERRERA COUNT 1 [facility] COMPLETE INC INC AUTO&[place] [address] MAISHA FERRERA TROPONIN 1 [facility] QUANTITAT INC INC JESSICA RADIOLOGI 41459 [facility] C EXAM 1 MEDICAL BREANNE CHEST 2 IMAGING VIEWS ASS FRONTAL&L ATERAL ECG 99175 MAISHA MATA ROUTINE [facility] W/LEAST P 12 LDS I&[place] [address] MAISHA FERRERA INFUSION 1 [facility] THERAPY/P INC INC ROPHYLAXI S /DX 1ST TO 1 HR CREATINE 08136 MAISHA FERRERA KINASE 1 [facility] TOTAL INC INC ECG 20422 MAISHA FERRERA ROUTINE 1 [facility] ECG INC INC W/LEAST 12 LDS TRCG ONLY W/O I&R CREATINE 97184 MAISHA FERRERA KINASE MB 1 [facility] FRACTION INC INC ONLY BASIC 50965 MAISHA FERRERA METABOLIC 1 [facility] PANEL INC INC CALCIUM TOTAL URINE 44493 MAISHA FERRERA 1 [facility] TEST INC INC VISUAL COLOR CMPRSN METHS URINE 94499 [facility] HERNA[facility]Z 1 [facility] TEST CLINIC OF VISUAL ERIN COLOR CMPRSN METHS ETONOGEST J7307 [facility] HER[facility] REL 1 [facility] CNTRACPT CLINIC OF IMPL SYS ERIN INCL IMPL & SPL INSERTION 52761 [facility] MARY 1 [facility] IMPLANTAB CLINIC OF LE ERIN CONTRACEP TIVE CAPSULES NONEMERGE A0100 [facility] NCY 1 COMMUNITY TRANSPORT ACTION [place]ION; [place] [address] [facility] MARY TRANSVAGI 1 [facility] NAL CLINIC OF ERIN NONEMERGE A[address] [facility] [place]; [place] [address] [facility] PAT SURG 1 LILY & PATHOLOGY DUBILIER GROSS&DELMA ROSCOPIC EXAM NONEMERGE A0100 [facility] CAB MNY 1 COMMUNITY TRANSPORT ACTION ATION; TAXI NONEMERGE A[address] [facility] 1 COMMUNITY TRANSPORT ACTION ATION; TAXI NONEMERGE A[address] [facility] 1 COMMUNITY TRANSPORT ACTION ATION; TAXI NONEMERGE A[address] [facility] 1 COMMUNITY TRANSPORT ACTION ATION; TAXI NONEMERGE A0100 [facility] CAB MNY 1 COMMUNITY TRANSPORT ACTION ATION; [place] [address] [place] CERVICAL 1 MEDICAL BREANNE SPINE W/[place] [address] [place] HEAD/BRAI 1 MEDICAL BREANNE N W/O IMAGING CONTRAST ASS MATERIAL 3D 60662 MAISHA FERRERA RENDERING 1 [facility] INC INC W/INTERP& POSTPROC DIFF WORK STATION 3D 69232 [place] RENDERING 1 MEDICAL BREANNE W/INTERP IMAGING & ASS POSTPROCE SS SUPERVISI ON URINE 34333 MAISHA FERRERA 1 [facility] TEST INC INC VISUAL COLOR CMPRSN METHS NONEMERGE A[address] [facility] 1 COMMUNITY TRANSPORT ACTION ATION; TAXI NONEMERGE A[address] [facility] 1 COMMUNITY TRANSPORT ACTION ATION; TAXI NONEMERGE A[address] [facility] 1 COMMUNITY TRANSPORT ACTION ATION; TAXI NONEMERGE A0100 [facility] CAB NCY 0 COMMUNITY TRANSPORT ACTION ATION; TAXI NONEMERGE A0100 [facility] CAB NCY 0 COMMUNITY TRANSPORT ACTION ATION; [place] DEEP D9220 JOE DIAZ SEDATION/ 0 NIRANJAN NIRANJAN GENERAL ANESTHESI A-1ST 30 MINUTES THER 40451 JOE DIAZ PROPH/DX 0 NIRANJAN NIRANJAN NJX IV PUSH SINGLE/1S T SBST/DRUG NONEMERGE A0100 [facility] CAB NCY 0 COMMUNITY TRANSPORT ACTION ATION; [place] NONEMERGE A0100 [facility] NCY 0 COMMUNITY TRANSPORT ACTION ATION; TAXI NONEMERGE A0100 [facility] NCY 0 COMMUNITY TRANSPORT ACTION ATION; TAXI NONEMERGE A0100 [facility] CAB NCY 0 COMMUNITY TRANSPORT ACTION ATION; TAXI NONEMERGE A0100 [facility] NCY 0 COMMUNITY TRANSPORT ACTION ATION; TAXI NONEMERGE A0100 [facility] CAB NCY 0 COMMUNITY TRANSPORT ACTION ATION; TAXI IIV3 63245 MAISHA ZUNIGAON VACCINE 0 [facility] VIRUS 0.5 ML DOSAGE IM USE URINE 61567 [facility] 0 [facility] TEST CLINIC OF VISUAL ERIN COLOR CMPRSN METHS CYTP C/V 51798 PATHOLOGY PATHOLOGY AUTO THIN 0 & & LYR CYTOLOGY CYTOLOGY PREPJ SCR LAB LAB MNL RESCR PHYS CYTP 20203 PATHOLOGY PATHOLOGY CERVICAL/ 0 & & VAGINAL CYTOLOGY CYTOLOGY REQ [place] [address] PATHOLOGY PATHOLOGY SURG 0 & & PATHOLOGY CYTOLOGY CYTOLOGY LAB LAB GROSS&DELMA ROSCOPIC EXAM COLPOSCOP 13121 [facility] Y CERVIX 0 [facility]ALTH [facility] BX CERVIX CLINIC OF & ERIN ENDOCRV CURRETAGE NONEMERGE A0100 [facility] CAB NCY 0 COMMUNITY TRANSPORT ACTION ATION; TAXI RPR&REFIT 87656 JAMES REYES, G 0 VISION NATALIA A SPECTACLE S EXCEPT APHAKIA 1 VISN V2103 JAMES REYES PLANO 0 VISION NATALIA A TO+/-4.00 D SPHER 0.12-2.00 D CYL EA FRAMES V2020 JAMES REYES, PURCHASES 0 VISION NATALIA A NONEMERGE A0100 [facility] CAB NCY 0 COMMUNITY TRANSPORT ACTION ATION; TAXI NONEMERGE A0100 [facility] CAB NCY 0 COMMUNITY TRANSPORT ACTION ATION; TAXI NONEMERGE A0100 [facility] CAB NCY 0 COMMUNITY TRANSPORT ACTION ATION; TAXI SPHERE V2100 JAMES REYES SINGLE 0 VISION NATALIA A VISION PLANO +/- 4.00 PER LENS OPHTH 43852 JAMES REYES MEDICAL 0 VISION NATALIA A XM&EVAL COMPRHNSV ESTAB PT 1/> FITTING 24842 JAMES REYES SPECTACLE 0 VISION NATALIA A S XCPT APHAKIA MONOFOCAL FRAMES V2020 JAMES REYES, PURCHASES 0 [place] [address] PATHOLOGY PATHOLOGY SURG 0 & & PATHOLOGY CYTOLOGY CYTOLOGY LAB LAB GROSS&DELMA ROSCOPIC EXAM CYTP 10704 PATHOLOGY PATHOLOGY CERVICAL/ 0 & & VAGINAL CYTOLOGY CYTOLOGY REQ LAB LAB INTERP PHYSICIAN CYTP C/V 92791 PATHOLOGY PATHOLOGY AUTO THIN 0 & & LYR CYTOLOGY CYTOLOGY PREPJ SCR LAB LAB MNL RESCR PHYS COLPOSCOP 99255 [facility], Sandra CERVIX 0 HEALTH TA[facility]DA J BX CERVIX CLINIC OF & ENDOCRV ERINALMA ROSA ONUR PLLC ANTIBODY 43874 COMBINED COMBINED CHLAMYDIA 0 PHYSICIAN PHYSICIAN S LAB S LAB CUL BACT 05547 COMBINED COMBINED XCPT 0 PHYSICIAN PHYSICIAN URINE S LAB S LAB BLOOD/STO OL AEROBIC ISOL RADEX 34602 [place], SPINE 9 MEDICAL ANNIE P LUMBOSACR IMAGING AL ASSOCIATE MINIMUM 4 S VIEWS RADIOLOGI 36232 [place] C 9 MEDICAL ANNIE P EXAMINATI IMAGING ON PELVIS ASSOCIATE 1/2 S VIEWS URINE 34785 MAISHA FERRERA 9 [facility] TEST INC INC VISUAL COLOR CMPRSN METHS URNLS DIP 58738 MAISHA FERRERA 9 [facility] STICK/TAB INC INC LET REAGENT AUTO MICROSCOP Y COLPOSCOP 91262 [facility], Sandra CERVIX 9 [facility] TAWANDA [place] BX CERVIX CLINIC OF & ENDOCRV [place] CURRETAGE [facility] [place] [address] PATHOLOGY PATHOLOGY SURG 9 & & PATHOLOGY CYTOLOGY CYTOLOGY LAB LAB GROSS&DELMA ROSCOPIC EXAM IADNA 60250 PATHOLOGY PATHOLOGY NEISSERIA 9 & & CYTOLOGY CYTOLOGY GONORRHOE LAB LAB AE AMPLIFIED PROBE TQ IADNA 80857 PATHOLOGY PATHOLOGY CHLAMYDIA 9 & & CYTOLOGY CYTOLOGY TRACHOMAT LAB LAB IS AMPLIFIED PROBE TQ CYTP 71268 PATHOLOGY PATHOLOGY CERVICAL/ 9 & & VAGINAL CYTOLOGY CYTOLOGY REQ LAB LAB INTERP PHYSICIAN CYTP C/V 93911 PATHOLOGY PATHOLOGY AUTO THIN 9 & & LYR CYTOLOGY CYTOLOGY PREPJ SCR LAB LAB MNL RESCR PHYS DEEP D9220 JOE DIAZ SEDATION/ 9 , XANDER TERRELL GENERAL W W ANESTHESI A-1ST 30 MINUTES THER 71354 JOE DIAZ PROPH/DX 9 , XANDER TERRELL NJX IV W W PUSH SINGLE/1S T SBST/DRUG ORTHOPANT 51546 JOE DIAZ OGRAM 9 , [place] [address] MAISHA FERRERA HEAD/BRAI 9 [facility] N W/O INC INC CONTRAST MATERIAL GONADOTRO 80032 MAISHA FERRERA PIN 9 [facility] CHORIONIC INC INC QUALITATI VE AMB A0427 EVIE CASE SERVICE 9 AMBULANCE AMBULANCE ALS SERVICE SERVICE EMERGENCY TRANSPORT LEVEL 1 AMB A0422 EVIE CASE OXYGEN&O2 9 AMBULANCE AMBULANCE SUPPLIES SERVICE SERVICE LIFE SUSTAININ G SITUATION 3D 16320 STAS BANKS 9 MEDICAL NICK W/LARRY IMAGING & ASSOCIATE POSTPROCE S SS SUPERVISI ON GROUND A0425 EVIE CASE MILEAGE 9 AMBULANCE AMBULANCE PER SERVICE SERVICE STATUTE MILE IIV3 79882 DHS/CO MIASHA VACCINE 9 [facility] VIRUS 0.5 BANK ACCT ML DOSAGE IM USE SPHERE V2100 JAMES REYES, SINGLE 9 VISION NATALIA A VISION PLANO +/- 4.00 PER LENS OPHTH 40405 JAMES CONROY, MEDICAL 9 VISION CLOVIS Zaldivar XM&EVAL COMPRHNSV ESTAB PT 1/> FITTING 42871 JAMES CONROY, SPECTACLE 9 VISION CLOVIS Zaldivar S XCPT APHAKIA MONOFOCAL SPHERE V2100 JAMES CONROY, SINGLE 9 VISION CLOVIS Zaldivar VISION PLANO +/- 4.00 PER LENS FRAMES V2020 JAMES CONROY, PURCHASES 9 VISION CLOVIS Zaldivar LEVONORGE J7302 [facility], STREL-RLS 9 [facility] E CLINIC OF INTRAUTER N ANNA CNTRACPT PLLC 52 MG URINE 82307 [facility], [facility] VISUAL COLOR [place] CMPRSN PLLC METHS INSERTION 92034 [facility], 9 [facility]ALTH [facility] J INTRAUTER CLINIC OF INE DEVICE [place] IUD PLLC URINE 06672 MAISHA FERRERA 9 [facility] TEST INC INC VISUAL COLOR CMPRSN METHS COMPREHEN 04675 MAISHA FERRERA SIVE 9 [facility] [address] MAISHA FERRERA AMYLASE 9 [facility] INC INC BLOOD 84020 MAISHA FERRERA COUNT 9 [facility] COMPLETE INC INC AUTO&[place] [address] MAISHA FERRERA LIPASE 9 [facility] INC INC URNLS DIP 91027 MAISHA FERRERA 9 [facility] STICK/TAB INC INC LET REAGENT [place] NFS 53372 MAISHA FERRERA THER 8 [facility] PROPH/DX INC INC 1ST >1 HR BLOOD 75834 MAISHA FERRERA COUNT 8 [facility] COMPLETE INC INC AUTO&AUTO DIFRNTL WBC AMB A0427 EVIE CASE SERVICE 8 AMBULANCE AMBULANCE ALS SERVICE SERVICE EMERGENCY TRANSPORT LEVEL 1 URINE 27643 MAISHA FERRERA 8 [facility] TEST INC INC VISUAL COLOR CMPRSN METHS BASIC 74037 MAISHA FERRERA METABOLIC 8 [facility] PANEL INC INC CALCIUM TOTAL URNLS DIP 02180 MAISHA FERRERA 8 [facility] STICK/TAB INC INC LET REAGENT AUTO MICROSCOP Y GROUND A0425 EVIE CASE MILEAGE 8 AMBULANCE AMBULANCE PER SERVICE SERVICE STATUTE MILE IIV3 81896 DHS/CO MAISHA VACCINE 8 [facility] VIRUS 0.5 BANK ACCT ML DOSAGE IM USE URINE 97103 [facility] HERNAN[facility], 8 [facility] TEST CLINIC OF VISUAL COLOR [place] CMPRSN PLLC METHS CYTP 30264 [facility], CERV/VAG 8 [place] INC ROBERT D AUTO THIN LAYER PREP MNL SCREEN RADEX 20848 MAISHA MAISHA ANKLE 8 [facility] COMPLETE INC INC MINIMUM [address] [place] [address] MAISHA FERRERA THYROID 8 [facility] STIMULATI [place] [address] MAISHA FERRERA ESTRADIOL 8 [facility] INC INC GONADOTRO 60700 MAISHA FERRERA PIN 8 [facility]OS[facility] FOLLICLE INC INC STIMULATI NG HORMONE GONADOTRO 00689 MAISHA MAISHA PIN 8 [facility]OS[facility] LUTEINIZI INC INC NG HORMONE RADEX 06377 JOHN KENY, FOREARM 2 8 MEDICAL NICK VIEWS IMAGING ASSOCIATE S RADEX 56782 MAISHA FERRERA SHOULDER 8 [facility] COMPLETE INC INC MINIMUM 2 VIEWS RADEX 41279 JOHN KENY, ELBOW 8 MEDICAL NICK COMPLETE IMAGING MINIMUM 3 ASSOCIATE VIEWS S RADEX 25145 MAISHA FERRERA ELBOW 2 8 [facility] VIEWS INC INC OPHTH 88065 CHRISTA GOODWIN MEDICAL 8 LIAM V LIAM V XM&EVAL COMPRHNSV ESTAB PT 1/> SPHERE V2100 CHRISTA GOODWIN SINGLE 8 LIAM V LIAM V VISION PLANO +/- 4.00 PER LENS RADIOLOGI 63709 MAISHA Agrawal 8 [facility] EXAMINATI INC INC ON SKULL 4/> VIEWS GROUND A0425 [facility] 8 AMBULANCE AMBULANCE PER SERVICE SERVICE STATUTE MILE AMBULANCE A0429 [facility] 8 AMBULANCE AMBULANCE BLS SERVICE SERVICE EMERGENCY TRANSPORT SPHERE V2100 REYESGINETTEREYES RADHA 8 NATALIA A NATALIA A VISION PLANO +/- 4.00 PER LENS FRAMES V2020 AMY REYES PURCHASES 8 NATALIA A NATALIA A RPR&REFIT 93548 AMY REYES G 8 NATALIA A NATALIA A SPECTACLE S EXCEPT APHAKIA Encounters Encounter Start End Date Code Location Performer Type Date PERIODIC 23729 [facility] PREVENTIV 7 7 PHYSICIAN E MED EST S GROUP PATIENT [id number] YRS OFFICE 47691 ANNA REIS OUTPATIEN 6 6 AMA T NEW 30 CHIROPRAC MINUTES TIC [facility] OFFICE 38179 SARY OKEEFE OUTPATIEN 6 6 NELL NELL T VISIT 15 MINUTES EMERGENCY 02273 RYAN HANSON 6 6 PHYSICIAN S[place]A [place] S, [facility] T VISIT HIGH/URGE NT SEVERITY OFFICE 14785 [facility] MIGUEL OUTPATINEWTON 6 6 PHYSICIAN ROBBI T NEW 10 S GROUP MINUTES HOSPITAL MAISHA - 6 6 [facility] OUTPATIEN INC T EMERGENCY 85995 MAISHA 6 6 [facility] DEPARTMEN INC T VISIT MODERATE SEVERITY EMERGENCY 16309 RYAN BAILON DEPT 6 6 PHYSICIAN VISIT S, PLLC HIGH SEVERITY& THREAT FUNCJ EMERGENCY 95587 RYAN DONIS 6 6 PHYSICIAN DELMA HILL S, [facility] T VISIT HIGH/URGE NT SEVERITY PERIODIC 43147 [facility] MARY PREVENTIV 6 6 PHYSICIAN SOFIE E MED EST S GROUP PATIENT 18-39 YRS EMERGENCY 62421 RYAN DONIS 6 6 PHYSICIAN [facility] T VISIT HIGH/URGE NT SEVERITY OFFICE 22057 MARY ELLEN SAHNI OUTCLEMENTINA 6 6 MD KATLIN, T VISIT PSC 15 MINUTES EMERGENCY 20396 RYAN LICEA 6 6 PHYSICIAN [facility] T VISIT MODERATE SEVERITY EMERGENCY 92626 RYAN DONIS 6 6 PHYSICIAN [facility] T VISIT MODERATE SEVERITY EMERGENCY 28896 RYAN DONIS 6 6 PHYSICIAN [facility] T VISIT HIGH/URGE NT SEVERITY HOSPITAL [place] [id number] 5 [facility] [place] [id number] 5 [facility] OFF[facility] 88536 SARY OKEEFE OUTPATIEN 5 5 NELL NELL T VISIT 15 MINUTES OFFICE 83780 SARY OKEEFE OUTPATIEN 5 5 NELL NELL T VISIT 15 MINUTES OFFICE 26723 SARY OKEEFE OUTPATIEN 5 5 NELL NELL T VISIT 15 MINUTES HOSPITAL [facility] - 5 5 [facility] OUTPATIEN INC T OFFICE 31958 [facility] OUT[facility]IEN 5 5 [facility] T VISIT INC 10 MINUTES HOSPITAL [facility] - 5 5 [facility] OUTPATIEN INC T OFFICE 57486 EDYTA HOLT OUTPATIEN 5 5 T NEW 30 MINUTES OFFICE 95956 [facility] TRA CONSULTAT 5 5 [place] [facility] ORTHOPAED NEW/ESTAB ICS PLC PATIENT 60 MIN EMERGENCY 50798 MAISHA CARRASCO JR 4 4 [facility] T VISIT P LOW/MODER SEVERITY [facility]OSPITAL [facility] - 4 4 [facility] OUTPATIEN INC T OFFICE 02889 SARY OKEEFE OUTPATIEN 4 4 NELL NELL T VISIT 15 MINUTES EMERGENCY 96699 [facility] 4 4 MYKEL DELMA DEPARTMEN EMERGENCY T VISIT PHYS MODERATE SEVERITY OFFICE 77221 MARY ROCHAPATINEWTON 4 4 SOFIE SOFIE T VISIT 15 MINUTES PERIODIC 45411 [facility] DEPT PATIENT LYNN LYNN 18-39 YRS OFFICE 60534 MARY ROCHAPATINEWTON 4 4 SOFIE SOFIE T VISIT 15 MINUTES EMERGENCY 76864 [facility] DEPT 4 4 DELMA DELMA VISIT HIGH SEVERITY& THREAT FUN OFFICE 90364 MARY MATAMOROS 4 4 SOFIE SOFIE T VISIT 15 MINUTES EMERGENCY 21243 STEFANY MCCALL 4 4 III MICHAEL III MICHAEL DEPARTMEN T VISIT MODERATE SEVERITY OFFICE 68699 [facility] OUTPATIEN 4 4 Y T VISIT 5 [facility] UNIVERSIT - 4 4 Y [facility] T OFFICE 44351 MOGHADAMI MOGHADAMI OUTPATIEN 4 4 AN DB AN DB T VISIT 15 [facility] - 3 3 [facility] OUTPATIEN [facility] T [facility] UNIVERSIT - 3 3 Y [facility] T OFFICE 40511 UN[facility] OUTPATIEN 3 3 Y T VISIT 5 [facility] MAISHA - 3 3 [facility] OUTPATIEN INC T [facility] MAISHA - 3 3 [facility] OUTPATIEN INC T OFFICE 20317 [facility] OUTPATIEN 3 3 Y T VISIT HOSPITAL 15 [facility] 71210 [facility] 3 3 VISIT HIGH SEVERITY& THREAT [facility] UNIVERSIT - 3 3 Y INPATIENT HOSPITAL EMERGENCY 43930 GAGANDEEP DONIS 3 3 DELMA DELMA DEPARTMEN T VISIT HIGH/URGE NT SEVERITY HOSPITAL [facility] - 3 3 [facility] OUTPATIEN INC T EMERGENCY 40364 GAGANDEEP DONIS 3 3 DELMA DELMA DEPARTMEN T VISIT HIGH/URGE NT SEVERITY EMERGENCY 33157 [facility] 3 3 [facility] DEPARTMEN INC T VISIT LOW/MODER SEVERITY [facility] - 3 3 [facility] OUTPATIEN INC T EMERGENCY 56782 GAGANDEEP DONIS 3 3 DELMA [facility] DEPARTMEN T VISIT HIGH/URGE NT SEVERITY EMERGENCY 78935 [facility] 3 3 [facility] DEPARTMEN INC T VISIT LOW/MODER SEVERITY OFFICE 11798 WILLIAM JENA TORRESES JENA OUTPATIEN 3 3 T VISIT 15 MINUTES OFFICE 16870 MAISHA FERRERA OUTPATIEN 2 2 [facility] CENTER 10 MINUTES OFFICE 44780 KRISHNA KRISHNA OUTPATIEN 2 2 NELL NELL T VISIT 15 MINUTES OFFICE 17530 KRISHNA KRISHNA OUTPATIEN 2 2 NELL NELL T VISIT 15 MINUTES EMERGENCY 53219 [facility] 2 2 [facility] VISIT HIGH/URGE NT SEVERITY EMERGENCY 23176 CLIF DONIS DEPT 2 2 EMERGENCY DELMA VISIT SERVICES HIGH SEVERITY& THREAT [facility] MA[facility]HA - 2 2 [facility] INC T OFFICE 48828 MARCELLA MARCELLA OUTPATIEN 2 2 CRY CRY T NEW 20 MINUTES EMERGENCY 41464 SOL REA 2 2 [facility] DEPARTMEN SERV T VISIT FOUNDATIO HIGH/URGE NT SEVERITY OFFICE 34224 KRISHNA KRISHNA OUTPATIEN 2 2 NELL NELL T VISIT 15 MINUTES OFFICE 15881 KRISHNA KRISHNA OUTPATIEN 2 2 NELL NELL T VISIT 15 MINUTES OFFICE 58521 WILLIAM JENA WILLIAM JENA OUTPATIEN 2 2 T VISIT 15 MINUTES OFFICE 17467 A C KRISHNA OUTPATIEN 1 1 LILIAN HANNA NELL T VISIT PSC 15 MINUTES EMERGENCY 05541 [facility]HA 1 1 [facility] T VISIT MODERATE SEVERITY [facility]OSP[facility] - [facility] 1 [facility] T EMERGENCY 58417 CLIF MCCALL 1 1 EMERGENCY III MICHAEL DEPARTMEN SERVICES T VISIT HIGH/URGE NT SEVERITY OFFICE 24058 A C KRISHNA OUTPATIEN 1 1 LILIAN HANNA NELL T VISIT PSC 15 MINUTES OFFICE 56525 A C QUINTANA A OUTPATIEN 1 1 LILIAN HANNA T VISIT PSC 15 MINUTES OFFICE 33117 A C QUINTANA A OUTPATIEN 1 1 LILIAN HANNA T VISIT 5 PSC MINUTES HOSPITAL [facility] - [facility] 1 [facility] T OFFICE 75273 [facility] 1 [facility] T VISIT CLINIC OF 15 ERIN MINUTES EMERGENCY 41809 CLIF MCCALL DEPT 1 1 EMERGENCY III MICHAEL VISIT SERVICES HIGH SEVERITY& THREAT [facility] MA[facility]HA - 1 1 [facility] INC T EMERGENCY 07593 MA[facility]HA 1 1 [facility] T VISIT MODERATE SEVERITY OFFICE 75798 A C KRISHNA OUTPATIEN 1 1 LILIAN CAMEJO T VISIT PSC 15 MINUTES EMERGENCY 16266 MAISHA 1 1 [facility] DEPARTMEN INC T VISIT MODERATE SEVERITY HOSPITAL MAISHA - 1 1 [facility] OUTPATIEN INC T EMERGENCY 99030 CLIF DONIS DEPT 1 1 EMERGENCY [facility]MA VISIT SERVICES HIGH SEVERITY& THREAT FUNCJ OFFICE 94893 A Nghia Oliveira OUTPATIEN 1 1 LILIAN HANNA T VISIT PSC 15 MINUTES OFFICE 95746 DIAZDES DIAZ OUTPATIEN 0 0 NIRANJAN NIRANJAN T NEW 10 MINUTES EMERGENCY 52798 CLIF WILD 0 0 EMERGENCY DEPARTMEN SERVICES T VISIT HIGH/URGE NT SEVERITY HOSPITAL MA[facility] - 0 0 [facility] OUTPATIEN INC T EMERGENCY 56359 [facility] VISIT LIMITED/M INOR PROB EMERGENCY 17317 CLIF MCCALL 0 0 EMERGENCY III MICHAEL DEPARTMEN SERVICES T VISIT MODERATE SEVERITY HOSPITAL [facility] - 0 0 [facility] OUTPATIEN INC T EMERGENCY 49009 MAISHA 0 0 [facility] DEPARTMEN INC T VISIT LOW/MODER SEVERITY OFFICE 47927 Roxanne KELLER OUTPATIEN 0 0 LILIAN CHAPMAN T VISIT PSC 15 MINUTES OFFICE 81333 Roxanne PEACOCK OUTPATIEN 0 0 LILIAN Agrawal T VISIT PSC 15 MINUTES OFFICE 13632 Roxanne PEACOCK OUTPATIEN 0 0 LILIAN Agrawal T VISIT PSC 15 MINUTES HOSPITAL MA[facility]HA - 0 0 [facility] OUTPATIEN INC T EMERGENCY 59237 CLIF DONIS, 0 0 EMERGENCY [facility] DEPARTMEN SERVICES T VISIT MODERATE ASSOCIATE SEVERITY S OFFICE 18990 Roxanne PEACOCK OUTPATIEN 0 0 LILIAN Agrawal T VISIT PSC 15 MINUTES OFFICE 48430 [facility], OUTPATIEN 0 0 HEALTH TAWANDA J T VISIT CLINIC OF 15 MINUTES [facility] EMERGENCY 79455 MAISHA 9 9 [facility] DEPARTMEN INC T VISIT LOW/MODER SEVERITY HOSPITAL [facility] - 9 9 [facility] OUTPATI[facility] INC T EMERGENCY 18843 CLIF DONIS 9 9 EMERGENCY [facility] SERVICES T VISIT HIGH/URGE ASSOCIATE NT S SEVERITY PERIODIC 62571 [facility], PREVENTIV 9 9 HEALTH TAWANDA J E MED EST CLINIC OF PATIENT 12-17YRS [facility] EMERGENCY 49894 CLIF DONIS, DEPT 9 9 EMERGENCY [facility] VISIT SERVICES HIGH SEVERITY& ASSOCIATE THREAT S [facility] EMERGENCY 28116 MA[facility]HA 9 9 [facility] DEPARTMEN INC T VISIT MODERATE SEVERITY HOSPITAL [facility] - 9 9 [facility] INC T EMERGENCY 71651 CLIF MAGDALENO 9 9 EMERGENCY [facility] SERVICES T VISIT MODERATE ASSOCIATE SEVERITY S HOSPITAL MA[facility]HA - 9 9 [facility] OUTPAT[facility] INC T EMERGENCY 55545 MAISHA 9 9 [facility] DEPARTMEN INC T VISIT LIMITED/M INOR PROB OFFICE 06317 [facility], OUTPATIEN 9 9 HEALTH TAWANDA J T VISIT CLINIC OF 25 MINUTES [facility] H[facility]PITAL MAISHA - 9 9 [facility] OUT[facility]EN INC T EMERGENCY 79150 IMAN DONIS, 9 9 [facility] T VISIT ON HIGH/URGE NT SEVERITY EMERGENCY 91202 MAISHA 9 9 [facility] DEPARTMEN INC T VISIT MODERATE SEVERITY HOSPITAL MA[facility] - 8 8 [facility] OUT[facility] INC T EMERGENCY 27611 MA[facility]HA 8 8 [facility] DEPART[facility] INC T VISIT HIGH/URGE NT SEVERITY PERIODIC 18493 [facility] FARHAN HERNANDEZ 8 8 [facility] TAWANDA Byrne [facility] EST CLINIC OF PATIENT 12-17YRS [facility] MAISHA - 8 8 [facility] OUTPATIEN INC T EMERGENCY 95469 MAISHA 8 8 [facility] DEPARTMEN INC T VISIT LOW/MODER SEVERITY HOSPITAL [facility] - 8 8 [facility] OUTPATI[facility] INC T OFFICE 48396 [facility]OM[facility] SATURNINO HERNANDEZ 8 8 [facility] TAWANDA Meléndez [facility] 30 CLINIC OF MINUTES [facility] MAISHA - 8 8 [facility] OUTPATIEN INC T EMERGENCY 62293 MAISHA 8 8 [facility] DEPARTMEN INC T VISIT LOW/MODER SEVERITY HOSPITAL MA[facility] - 8 8 [facility] OUTPATI[facility] INC T EMERGENCY 91552 MA[facility]HA 8 8 [facility] DEPART[facility] INC T VISIT LOW/MODER SEVERITY OFFICE 31116 FAMILY SATURNINO TRONCOSO 8 8 [facility] ROBERT T T VISIT ASSOCIATE 15 S MINUTES
--- OUTSIDE RECORDS SUMMARY | 2017-04-13 15:47 | External Medical Summary Rpt ---
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 SCR MNL RESCR PHYS COLPOSCOP 83944 [facility] MARY Y CERVIX 5 PHYSICIAN SOFIE ENDOCERVI S GROUP SOHAM CURETTAGE OPHTH 88033 [facility]Y [facility] MEDICAL 5 XM&EVAL COMPRHNSV ESTAB PT 1/> RADIOLOGI 63979 [place] [facility] C EXAM 4 MEDICAL BREANNE CHEST 2 IMAGING VIEWS ASS FRONTAL&L ATERAL RADEX 92733 [place] [facility] HAND 4 MEDICAL BREANNE MINIMUM 3 IMAGING VIEWS ASS COLPOSCOP 03910 MARY HERNANDEZ Y CERVIX 4 SOFIE SOFIE ENDOCERVI SOHAM CURETTAGE CYTP C/V 79536 [facility], PICKLESIM [facility] ER JR SANTY LYR PREPJ SCR MNL RESCR PHYS URINE 57738 MARY HERNANDEZ 4 SOFIE SOFIE TEST VISUAL COLOR CMPRSN METHS INSERTION 64850 MARY HERNANDEZ 4 SOFIE SOFIE INTRAUTER INE DEVICE IUD LEVONORGE J7302 MARY HERNANDEZ STREL-RLS 4 SOFIE SOFIE E INTRAUTER N CNTRACPT 52 MG URNLS DIP 80830 [facility] STICK/TAB [facility] DEPT LET RGNT LYNN LYNN NON-AUTO W/O MICRSCP CONTRACEP S4993 [facility] TIVE 4 [facility] PILLS FOR [facility] DEPT LYNN LYNN CONTROL URINE 42804 [facility] 4 [facility] TEST [facility] DEPT VISUAL LYNN LYNN COLOR CMPRSN METHS IADNA 28561 [facility] CHLAM[facility]DIA [facility] DEPT TRACHOMAT LYNN LYNN IS AMPLIFIED PROBE TQ INJECTION J1050 [facility] 4 [facility] MEDROXYPR [facility] DEPT OGESTERON LYNN LYNN E ACETATE 1 MG IADNA 51409 [facility] NEISSERIA 4 [facility] DEPT GONORRHOE LYNN LYNN AE AMPLIFIED PROBE TQ FITTING 46802 SCIFRES SCIFRES SPECTACLE 4 ANG ANG S XCPT APHAKIA MONOFOCAL SPHERE V2100 SCIFRES SCIFRES SINGLE 4 ANG ANG VISION PLANO +/- 4.00 PER LENS OPHTH 51920 SCIFRES SCIFRES MEDICAL 4 ANG ANG XM&EVAL COMPRHNSV ESTAB PT 1/> FRAMES V2020 SCIFRES SCIFRES PURCHASES 4 ANG ANG SCRATCH V2760 SCIFRES SCIFRES RESISTANT 4 ANG ANG COATING PER LENS LENS V2784 SCIFRES SCIFRES POLYCARBO 4 ANG ANG ZAINAB [place] E[place] [address] KEN[facility] KENY ABDOMEN & 4 BREANNE BREANNE PELVIS W/O CONTRAST MATERIAL ANTIBODY 83746 COMBINED COMBINED CHLAMYDIA 4 PHYSICIAN PHYSICIAN S LA S LA CUL BACT 79969 COMBINED COMBINED XCPT 4 PHYSICIAN PHYSICIAN URINE S LA S LA BLOOD/STO OL AEROBIC ISOL URINE 16586 MARY HERNANDEZ 4 SOFIE SOFIE TEST VISUAL COLOR CMPRSN METHS CYTP 33516 MAHONEY MAHONEY CERVICAL/ 4 NELL NELL VAGINAL REQ INTERP PHYSICIAN CYTP C/V 95559 MAHONEY MAHONEY AUTO THIN 4 NELL NELL LYR PREPJ SCR MNL RESCR PHYS IADNA 37443 MAHONEY MAHONEY PAPILLOMA 4 NELL NELL VIRUS HUMAN AMPLIFIED PROBE TQ COLPOSCOP 65723 MARY HERNANDEZ Y CERVIX 4 SOFIE SOFIE ENDOCERVI SOHAM CURETTAGE RADIOLOGI 69390 [facility] C 4 Y Y [facility] ON TIBIA & FIBULA 2 VIEWS NONEMERG [...] ATION SER ATION SER AREA/OTH SYS PHYSICAL 49774 MAISHA FERRERA THERAPY 3 [facility] RE-EVALUA INC INC TION RADIOLOGI 32999 [facility] C 3 Y Y [facility] ON TIBIA & FIBULA 2 VIEWS CCIIV3 59293 [facility] VACCINE 3 [facility] PRES[facility] DEPT HLTH DEPT JESSICA FREE LYNN LYNN 0.5 ML IM USE PHYSICAL 96810 MAISHA MAISHA THERAPY 3 [facility] RE-EVALUA INC INC TION NONEMERG A0120 LKLP CAC LKLP CAC TRNSPRT: 3 INC INC [place] REGION 11 REGION 11 MTN AREA/OTH SYS NONEMERG A0120 LKLP CAC LKLP CAC TRNSPRT: 3 INC INC [place] REGION 11 REGION 11 MTN AREA/OTH SYS COLPOSCOP 61394 [facility] HER[facility] Y CERVIX 3 [facility] CERVIX CLIN[facility] OF & [place] [address] MAHONEY MAHONEY SURG 3 NELL NELL PATHOLOGY GROSS&DELMA ROSCOPIC EXAM CYTP 96913 MAHONEY MAHONEY CERVICAL/ 3 NELL NELL VAGINAL REQ INTERP PHYSICIAN CYTP C/V 68790 MAHONEY MAHONEY AUTO THIN 3 NELL NELL [...] 11 REGION 11 MTN AREA/OTH SYS PHYSICAL 98317 MAISHA MAISHA THERAPY 3 [facility] EVALUATIO INC INC N REPAIR [address] [place] INTERMEDI 3 MEDICAL MEDICAL ATE SERV SERV S/A/T/E FOUNDATIO FOUNDATIO 7.6-12.5 N N CM ANES 80530 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 INTEG 3 RAN RAN EXTREMITI ES ANT TRUNK & PERINEUM NOS SBSQ 48310 [facility] 3 ERIN ERIN CARE/DAY 25 MINUTES RADIOLOGI 92856 KING SANDHYA KRAUSE SANDHYA C 3 EXAMINATI ON TIBIA & FIBULA 2 VIEWS RADIOLOGI 04849 JACQUELINE COX C 3 EXAMINATI ON CHEST SINGLE VIEW FRONTAL TX TIBL 98892 MOGHADAMI MOGHADAMI SHFT FX 3 AN DB AN DB IMED IMPLT W/WO SCREWS&/C ERCLA ANES OPEN 95565 STEYN PIE STEYN PIE 3 OSTEOTOMY /OSTEOPLA STY TIBIA&/FI BULA CLOS [address] [place] [address] Y Y [facility] TIBIA&FIB W/INTERNA L FIX FASCIOTOM [address] RADEX HIP 91711 NICKELS NICKELS 3 [place] UNILATERA L COMPLETE MINIMUM [address] [place] [address] MERHAR MERHAR THORACIC 3 GAR GAR SPINE W/[place] [address] RASLAU RASLAU HEAD/BRAI 3 FLA FLA N W/O CONTRAST MATERIAL RADIOLOGI 97907 NICKELS NICKELS C 3 [place] EXAMINATI ON FEMUR [address] LUMBAR 93787 MERHAR MERHAR SPINE 3 GAR GAR W/O CONTRAST MATERIAL RADEX 68099 NICKELS NICKELS FOOT 3 [place] COMPLETE MINIMUM 3 VIEWS RADIOLOGI 01849 NICKELS NICKELS C 3 [place] EXAMINATI ON PELVIS 1/2 VIEWS RADIOLOGI 16749 KING SANDHYA KRAUSE SANDHYA C 3 EXAMINATI ON TIBIA & FIBULA 2 VIEWS AMB A0427 [facility] SERVICE 3 AMBULANCE AMBULANCE ALS SERVICE SERVICE EMERGENCY TRANSPORT LEVEL 1 HEPA 60071 MAISHA FERRERA VACCINE 3 [facility] DOSE FOR INTRAMUSC ULAR USE URINE 33747 MAISHA FERRERA 3 [facility] TEST INC INC VISUAL COLOR CMPRSN METHS CULTURE 32082 MAISHA FERRERA BACTERIAL 3 [facility] INC INC QUANTTATI VE COLONY COUNT URINE URNLS DIP 15394 MAISHA FERRERA 3 [facility] STICK/TAB INC INC LET REAGENT AUTO MICROSCOP Y RADIOLOGI 05881 MAISHA FERRERA C EXAM 3 [facility] CHEST 2 INC INC VIEWS FRONTAL&[place] [address] PICKLESIM PICKLESIM SURG 3 ER JR SANTY ER JR SANTY PATHOLOGY GROSS&DELMA ROSCOPIC EXAM CYTP C/V 72793 PICKLESIM PICKLESIM AUTO THIN 3 ER JR SANTY ER JR SANTY LYR PREPJ SCR MNL RESCR PHYS COLPOSCOP 54685 HERNANDEZ HERNANDEZ Y CERVIX 3 SOFIE SOFIE ENDOCERVI SOHAM CURETTAGE IADNA 37032 PICKLESIM PICKLESIM PAPILLOMA 3 ER JR SANTY ER JR SANTY VIRUS HUMAN AMPLIFIED PROBE TQ CYTP 71974 PICKLESIM PICKLESIM CERVICAL/ 3 ER JR SANTY ER JR SANTY VAGINAL REQ INTERP PHYSICIAN HEPA 08353 MAISHA FERRERA VACCINE 2 [facility] DOSE FOR INTRAMUSC ULAR USE CYTP C/V [address] AUTO THIN 2 & LYR CYTOLOGY PREPJ SCR LAB MNL RESCR PHYS CYTP [address] CERVICAL/ 2 & VAGINAL CYTOLOGY REQ LAB INTERP PHYSICIAN IADNA [address] PAPILLOMA 2 & VIRUS CYTOLOGY HUMAN LAB AMPLIFIED PROBE TQ COLPOSCOP 65812 HERNANDEZ HERNANDEZ Y CERVIX 2 SOFIE SOFIE ENDOCERVI SOHAM CURETTAGE REMOVAL 12419 HERNANDEZ HERNANDEZ NON-BIODE 2 SOFIE SOFIE GRADABLE DRUG DELIVERY IMPLANT NONEMERG A0120 LKLP LKLP TRNSPRT: 2 COMMUNITY COMMUNITY MIN[facility] ACTION ACTION MTN AREA/OTH SYS IAADIADOO 96011 KRISHNA KRISHNA 2 NELL NELL STREPTOCO CCUS GROUP A COMPREHEN 57442 MAISHA FERRERA SIVE 2 [facility] [place] [address] MAISHA FERRERA AMYLASE 2 [facility] INC INC URINE 43690 MAISHA FERRERA 2 [facility] TEST INC [place] [address] MAISHA FERRERA ABDOMEN & 2 [facility] PELVIS INC INC W/O CONTRAST MATERIAL BLOOD 32301 MAISHA MAISHA COUNT 2 [facility] COMPLETE INC INC AUTO&[place] [address] MAISHA FERRERA LIPASE 2 [facility] INC INC URNLS DIP 58745 MAISHA FRERERA 2 [facility] STICK/TAB INC [place] [address] EWY RUSSEL EWY RUSSEL HEAD/BRAI 2 N W/O CONTRAST MATERIAL IAADIADOO 19423 MARCELLA MARCELLA 2 CRY CRY STREPTOCO CCUS GROUP A OPHTH 97820 [facility] MEDICAL 2 DENZEL DENZEL XM&EVAL COMPRE NEW PT 1/> VST LENS V2784 [facility]ACA POLYCARBO 2 DENZEL DENZEL ZAINAB OR EQUAL ANY INDEX PER LENS 1 [facility]N V2103 [facility] DENZEL DENZEL TO+/-4.00 D SPHER 0.12-2.00 D CYL EA FRAMES V2020 [facility] PURCHASES 2 DENZEL DENZEL DETERMINA 05087 [facility] TION 2 DENZEL DENZEL REFRACTIV E STATE FITTING 65657 [facility] SPECTACLE 2 DENZEL DENZEL S XCPT APHAKIA MONOFOCAL VISUAL 83069 [facility] FIELD XM 2 DENZEL DENZEL UNI/BI W/INTERP EXTENDED EXAM SBSQ 44336 [facility] OBSERVATI 2 ANT ANT ON CARE/DAY [address] [place] [address] [place] ABDOMEN & 2 MEDICAL DENIZ PELVIS SERV [place] [address] [place] ABDOMINAL 2 MEDICAL DENIZ REAL SERV TIME FOUNDATIO W/IMAGE N LIMITED AMB A0427 [facility] SERVICE 2 [facility] EMERGENCY EMS EMS TRANSPORT LEVEL 1 RADEX 03928 THU THU HUMERUS 2 DENIZ DENIZ MINIMUM 2 VIEWS RADEX 80389 THU THU FOREARM 2 2 DENIZ DENIZ VIEWS RADEX 06431 THU THU WRIST 2 DENIZ DENIZ COMPLETE MINIMUM 3 VIEWS RADEX 53828 THU THU SHOULDER 2 DENIZ DENIZ COMPLETE MINIMUM 2 VIEWS RADEX 10868 THU THU ELBOW 2 2 DENIZ DENIZ VIEWS RADIOLOGI 89449 THU THU C 2 DENIZ DENIZ EXAMINATI ON PELVIS 1/[address] [place] [address] [place] HEAD/BRAI 2 MEDICAL DENIZ N W/O SERV CONTRAST FOUNDATIO MATERIAL N RADIOLOGI 35946 THU THU C 2 DENIZ DENIZ EXAMINAT[place] [address] [place] THORACIC 2 MEDICAL DENIZ SPINE W/[place] [address] [place] ANGIOGRAP 2 MEDICAL DENIZ HY CHEST SERV W/CONTRAS FOUNDATIO T/NONCONT N RAST RADEX 19727 THU THU HAND 2 DENIZ DENIZ MINIMUM [address] LUMBAR [address] [place]U SPINE 2 MEDICAL DENIZ W/[place] [address] [place]U CERVICAL 2 MEDICAL DENIZ SPINE W/O SERV CONTRAST FOUNDATIO MATERIAL N [facility]OUND A04[facility] STAT[facility] EMS EMS MILE INITIAL 20397 [place] STOVER OBSERVATI 2 AND AND ON CARE/DAY 50 MINUTES NONEMERG A0120 LKLP LKLP TRNSPRT: 1 COMMUNITY COMMUNITY [facility] ACTION N MTN AREA/OTH SYS URNLS DIP 24519 MAISHA FERRERA 1 [facility] STICK/TAB INC INC LET REAGENT AUTO MICROSCOP Y IADNA 65572 MAISHA FERRERA CHLAMYDIA 1 [facility] INC INC TRACHOMAT IS AMPLIFIED PROBE TQ IADNA 74450 MAISHA FERRERA NEISSERIA 1 [facility] INC INC GONORRHOE AE AMPLIFIED PROBE TQ URINE 11866 MAISHA FERRERA 1 [facility] TEST INC INC VISUAL COLOR CMPRSN METHS CYTP C/V 02926 PATHOLOGY PATHOLOGY AUTO THIN 1 & & LYR CYTOLOGY CYTOLOGY PREPJ SCR LAB LAB MNL RESCR PHYS CYTP 77622 PATHOLOGY PATHOLOGY CERVICAL/ 1 & & VAGINAL CYTOLOGY CYTOLOGY REQ LAB LAB INTERP PHYSICIAN IADNA 67768 PATHOLOGY PATHOLOGY NEISSERIA 1 & & CYTOLOGY CYTOLOGY GONORRHOE LAB LAB AE AMPLIFIED PROBE TQ IADNA 15244 PATHOLOGY PATHOLOGY CHLAMYDIA 1 & & CYTOLOGY CYTOLOGY TRACHOMAT LAB LAB [place] [address] [facility] PICKLESIM SURG 1 LILY & [facility] PATHOLOGY DUBILIER GROSS&DELMA ROSCOPIC EXAM COLPOSCOP 93448 [facility] HERNANDEZ Y CERVIX 1 HEALTH SOFIE BX CERVIX CLINIC OF & ERIN ENDOCRV CURRETAGE NONEMERG A0120 LKLP LKLP TRNSPRT: 1 [facility] ACTION N [facility] AREA/OTH SYS NONEMERG A0120 LKLP LKLP TRNSPRT: 1 [facility] ACTION N GAN AREA/OTH SYS IIV3 99666 MAISHA FERRERA VACCINE 1 [facility] CENTER CENTER VIRUS 0.5 ML DOSAGE IM USE NONEMERG A0120 LKLP LKLP TRNSPRT: 1 [facility] ACTION N MTN AREA/OTH SYS NONEMERG A0120 LKLP LKLP TRNSPRT: 1 [facility] ACTION N MTN AREA/OTH SYS NONEMERG A0120 LKLP LKLP TRNSPRT: 1 [facility] ACTION N MTN AREA/OTH SYS NONEMERG A0120 LK LK TRNSPRT: 1 [facility] ACTION N [facility] SYS NONEMERG A0120 LK LK TRNSPRT: 1 [facility] ACTION N [facility] SYS NONEMERG A0120 LK LK TRNSPRT: 1 [facility] ACTION N [facility] SYS ANALGESIA D9230 CHANDA DMD CHANDA DMD 1 RELIGION RELIGION ANXIOLYSI S INHALATIO N OF NITROUS OXIDE ANALGESIA D9230 CHANDA DMD CHANDA DMD 1 RELIGION RELIGION ANXIOLYSI S INHALATIO N OF NITROUS OXIDE NONEMERG A0120 [facility] TRNSPRT: 1 [facility] ACTION N [facility] SYS NONEMERG A0120 [facility] TRNSPRT: 1 [facility] ACTION N [facility] SYS ANALGESIA D9230 CHANDA DMD CHANDA DMD 1 RELIGION RELIGION ANXIOLYSI S INHALATIO N OF NITROUS OXIDE MOLECULAR 13608 [facility]ST 1 DIAGNOSTI DIAGNOSTI DIAGNOSTI , INC. , INC. CS INTERPRET ATION & REPORT MUTATION 68679 [facility] ID 1 DIAGNOSTI DIAGNOSTI ENZYMATIC , INC. , INC. LIG/PRIME R XTN 1 SGM EA MOLECULAR 87155 [facility] DX 1 DIAGNOSTI DIAGNOSTI AMPLIFICA , INC. , INC. TION TARGET EA SEQUENCE MOLEC 37136 [facility] SEP&ID HI 1 DIAGNOSTI DIAGNOSTI RESOLU , INC. , INC. TQ EACH NUCLEIC ACID PREP MOLEC 00024 [facility] ISOL/XTRJ 1 DIAGNOSTI DIAGNOSTI HP , INC. , INC. NUCLEIC ACID EA TYPE ANALGESIA D9230 CHANDA DMD CHANDA DMD 1 RELIGION RELIGION ANXIOLYSI S INHALATIO N OF NITROUS OXIDE NONEMERG A0120 [facility] TRNSPRT: 1 [facility] ACTION N [facility] SYS OPHTH 94301 JAMES CONROY MEDICAL 1 VISION ANG XM&EVAL COMPRHNSV ESTAB PT 1/> FITTING 84474 JAMES CONROY SPECTACLE 1 VISION ANG S XCPT APHAKIA MONOFOCAL FRAMES V2020 JAMES CONROY PURCHASES 1 VISION ANG 1 VISN V2103 JAMES CONROY PLANO 1 VISION ANG TO+/-4.00 D SPHER 0.12-2.00 D CYL EA US BREAST 18815 [facility] REAL 1 MEDICAL BREANNE TIME IMAGING W/IMAGE ASS DOCUMENTA TION NONEMERGE A0100 [facility] NCY 1 COMMUNITY TRANSPORT ACTION ATION; TAXI BLOOD 99805 MAISHA FERRERA COUNT 1 [facility] COMPLETE INC INC AUTO&[place] [address] MAISHA FERRERA TROPONIN 1 [facility] QUANTITAT INC INC JESSICA RADIOLOGI 49887 [facility] C EXAM 1 MEDICAL BREANNE CHEST 2 IMAGING VIEWS ASS FRONTAL&L ATERAL ECG 28839 MAISHA MATA ROUTINE 1 [facility] W/LEAST P 12 LDS I&[place] [address] MAISHA FERRERA INFUSION 1 [facility] THERAPY/P INC INC ROPHYLAXI S /DX 1ST TO 1 HR CREATINE 86289 MAISHA FERRERA KINASE 1 [facility] TOTAL INC INC ECG 44049 MAISHA FERRERA ROUTINE 1 [facility] ECG INC INC W/LEAST 12 LDS TRCG ONLY W/O I&R CREATINE 65508 MAISHA FERRERA KINASE MB 1 [facility] FRACTION INC INC ONLY BASIC 93379 MAISHA FERRERA METABOLIC 1 [facility] PANEL INC INC CALCIUM TOTAL URINE 22318 MAISHA FERRERA 1 [facility] TEST INC INC VISUAL COLOR CMPRSN METHS URINE 31846 [facility] 1 [facility]ALTH SOFIE TEST CLINIC OF VISUAL ERIN COLOR CMPRSN METHS ETONOGEST J7307 [facility] HERNANDEZ REL 1 HEALTH SOFIE CNTRACPT CLINIC OF IMPL SYS ERIN INCL IMPL & SPL INSERTION 80791 [facility] MARY 1 [facility]ALTH [facility]FIE IMPLANTAB CLINIC OF LE ERIN CONTRACEP TIVE CAPSULES NONEMERGE A0100 [facility] NCY 1 COMM[place]ITY [place] [address] [facility] MARY TRANSVAGI 1 [facility] NAL CLINIC OF ERIN NONEMERGE A0100 [facility] 1 COMMUNITY TRANSP[place]; [place] [address] [facility] SHIVAM PAT SURG 1 LILY & PATHOLOGY DUBILIER GROSS&DELMA ROSCOPIC EXAM NONEMERGE A0100 [facility] SDY 1 COMMUNITY TRANSPORT ACTION ATION; TAXI NONEMERGE A0100 [facility] 1 COMMUNITY TRANSPORT ACTION ATION; TAXI NONEMERGE A0100 [facility] 1 COMMUNITY TRANSPORT ACTION ATION; TAXI NONEMERGE A0100 [facility] 1 COMMUNITY TRANSPORT ACTION ATION; TAXI NONEMERGE A0100 [facility] SDY 1 COMMUNITY TRANSPORT ACTION ATION; [place] [address] [place] CERVICAL 1 MEDICAL BREANNE SPINE W/[place] [address] [place] HEAD/BRAI 1 MEDICAL BREANNE N W/O IMAGING CONTRAST ASS MATERIAL 3D 18483 MAISHA FERRERA RENDERING 1 [facility] INC INC W/INTERP& POSTPROC DIFF WORK STATION 3D 76665 [place] [facility] RENDERING 1 MEDICAL BREANNE W/INTERP IMAGING & ASS POSTPROCE SS SUPERVISI ON URINE 64647 MAISHA FERRERA 1 [facility] TEST INC INC VISUAL COLOR CMPRSN METHS NONEMERGE A0100 [facility] 1 COMMUNITY TRANSPORT ACTION ATION; [place] NONEMERGE A0100 [facility] 1 COMMUNITY TRANSPORT ACTION ATION; [place] NONEMERGE A0100 [facility] 1 COMMUNITY TRANSPORT ACTION ATION; [place]AXI NONEMERGE A0100 [facility] NCY 0 COMMUNITY TRANSPORT ACTION ATION; TAXI NONEMERGE A0100 [facility] NCY 0 COMMUNITY TRANSPORT ACTION ATION; TAXI DEEP D9220 JOE DIAZ SEDATION/ 0 NIRANJAN NIRANJAN GENERAL ANESTHESI A-1ST 30 MINUTES THER 07095 JOE DIAZ PROPH/DX 0 NIRANJAN NIRANJAN NJX IV PUSH SINGLE/1S T SBST/DRUG NONEMERGE A0100 [facility] NCY 0 COMMUNITY TRANSPORT ACTION ATION; TAXI NONEMERGE A0100 [facility] 0 COMMUNITY TRANSPORT ACTION ATION; TAXI NONEMERGE A0100 [facility] 0 COMMUNITY TRANSPORT ACTION ATION; TAXI NONEMERGE A0100 [facility] 0 COMMUNITY TRANSPORT ACTION ATION; TAXI NONEMERGE A0100 [facility] 0 COMMUNITY TRANSPORT ACTION ATION; TAXI NONEMERGE A0100 [facility] 0 COMMUNITY TRANSPORT ACTION ATION; TAXI IIV3 16556 MAISHA ZUNIGAON VACCINE 0 [facility] VIRUS 0.5 ML DOSAGE IM USE URINE 81271 [facility] VISUAL ERIN COLOR CMPRSN METHS CYTP C/V 08589 PATHOLOGY PATHOLOGY AUTO THIN 0 & & LYR CYTOLOGY CYTOLOGY PREPJ SCR LAB LAB MNL RESCR PHYS CYTP 17634 PATHOLOGY PATHOLOGY CERVICAL/ 0 & & VAGINAL CYTOLOGY CYTOLOGY [place] [address] PATHOLOGY PATHOLOGY SURG 0 & & PATHOLOGY CYTOLOGY CYTOLOGY LAB LAB GROSS&DELMA ROSCOPIC EXAM COLPOSCOP 83528 [facility] Y CERVIX 0 [facility] BX CERVIX CLINIC OF & ERIN ENDOCRV CURRETAGE NONEMERGE A0100 [facility] 0 COMMUNITY TRANSPORT ACTION ATION; TAXI RPR&REFIT 78551 JAMES REYES, G 0 VISION NATALIA A SPECTACLE S EXCEPT APHAKIA 1 VISN V2103 JAMES REYES PLANO 0 VISION [place]ALIA A TO+/-4.00 D SPHER 0.12-2.00 D CYL EA FRAMES V2020 JAMES REYES, PURCHASES 0 VISION NATALIA A NONEMERGE A0100 [facility] 0 COMMUNITY TRANSPORT ACTION ATION; TAXI NONEMERGE A0100 [facility] 0 COMMUNITY TRANSPORT ACTION ATION; TAXI NONEMERGE A0100 [facility] 0 COMMUNITY TRANSPORT ACTION ATION; TAXI SPHERE V2100 JAMES REYES SINGLE 0 VISION NATALIA A VISION PLANO +/- 4.00 PER LENS OPHTH 49477 JAMES REYES MEDICAL 0 VISION NATALIA A XM&EVAL COMPRHNSV ESTAB PT 1/> FITTING 40806 JAMES REYES SPECTACLE 0 VISION NATALIA A S XCPT APHAKIA MONOFOCAL FRAMES V2020 JAMES REYES, PURCHASES 0 [place] [address] PATHOLOGY PATHOLOGY SURG 0 & & PATHOLOGY CYTOLOGY CYTOLOGY LAB LAB GROSS&DELMA ROSCOPIC EXAM CYTP 26647 PATHOLOGY PATHOLOGY CERVICAL/ 0 & & VAGINAL CYTOLOGY CYTOLOGY REQ LAB LAB INTERP PHYSICIAN CYTP C/V 28564 PATHOLOGY PATHOLOGY AUTO THIN 0 & & LYR CYTOLOGY CYTOLOGY PREPJ SCR LAB LAB MNL RESCR PHYS COLPOSCOP 66575 [facility], Sandra CERVIX 0 [facility] J BX CERVIX CLINIC OF & ENDOCRV ERINAMLA ROSA ONUR PLLC ANTIBODY 03949 COMBINED COMBINED CHLAMYDIA 0 PHYSICIAN PHYSICIAN S LAB S LAB CUL BACT 34203 COMBINED COMBINED XCPT 0 PHYSICIAN PHYSICIAN URINE S LAB S LAB BLOOD/STO OL AEROBIC ISOL RADEX 61198 [place], SPINE 9 MEDICAL ANNIE P LUMBOSACR IMAGING AL ASSOCIATE MINIMUM 4 S VIEWS RADIOLOGI 12384 [place] C 9 MEDICAL ANNIE P EXAMINATI IMAGING ON PELVIS ASSOCIATE 1/2 S VIEWS URINE 49884 MAISHA FERRERA 9 [facility] TEST INC INC VISUAL COLOR CMPRSN METHS URNLS DIP 39164 MAISHA FERRERA 9 [facility] STICK/TAB INC INC LET REAGENT AUTO MICROSCOP Y COLPOSCOP 74399 [facility], Sandra CERVIX 9 [facility] [place] BX CERVIX CLINIC OF & ENDOCRV [place] [address] PATHOLOGY PATHOLOGY SURG 9 & & PATHOLOGY CYTOLOGY CYTOLOGY LAB LAB GROSS&DELMA ROSCOPIC EXAM IADNA 64789 PATHOLOGY PATHOLOGY NEISSERIA 9 & & CYTOLOGY CYTOLOGY GONORRHOE LAB LAB AE AMPLIFIED PROBE TQ IADNA 76765 PATHOLOGY PATHOLOGY CHLAMYDIA 9 & & CYTOLOGY CYTOLOGY TRACHOMAT LAB LAB IS AMPLIFIED PROBE TQ CYTP 59703 PATHOLOGY PATHOLOGY CERVICAL/ 9 & & VAGINAL CYTOLOGY CYTOLOGY REQ LAB LAB INTERP PHYSICIAN CYTP C/V 40514 PATHOLOGY PATHOLOGY AUTO THIN 9 & & LYR CYTOLOGY CYTOLOGY PREPJ SCR LAB LAB MNL RESCR PHYS DEEP D9220 JOE DIAZ SEDATION/ 9 , XANDER TERRELL GENERAL W W ANESTHESI A-1ST 30 MINUTES THER 01087 JOE DIAZ PROPH/DX 9 , XANDER TERRELL NJX IV W W PUSH SINGLE/1S T SBST/DRUG ORTHOPANT 35452 JOE DIAZ OGRAM 9 , [place] [address] MAISHA FERRERA HEAD/BRAI 9 [facility] N W/O INC INC CONTRAST MATERIAL GONADOTRO 86833 MAISHA FERRERA PIN 9 [facility] CHORIONIC INC INC QUALITATI VE AMB A0427 EVIE CASE SERVICE 9 AMBULANCE AMBULANCE ALS SERVICE SERVICE EMERGENCY TRANSPORT LEVEL 1 AMB A0422 EVIE CASE OXYGEN&O2 9 AMBULANCE AMBULANCE SUPPLIES SERVICE SERVICE LIFE SUSTAININ G SITUATION 3D 49258 STAS BANKS 9 MEDICAL NICK W/LARRY IMAGING & ASSOCIATE POSTPROCE S SS SUPERVISI ON GROUND A0425 EVIE CASE MILEAGE 9 AMBULANCE AMBULANCE PER SERVICE SERVICE STATUTE MILE IIV3 29072 DHS/CO MAISHA VACCINE 9 [facility] VIRUS 0.5 BANK ACCT ML DOSAGE IM USE SPHERE V2100 JAMES REYES, SINGLE 9 VISION NATALIA A VISION PLANO +/- 4.00 PER LENS OPHTH 46343 JAMES CONROY, MEDICAL 9 VISION [place] Zaldivar XM&EVAL COMPRHNSV ESTAB PT 1/> FITTING 99490 JAMES CONROY, SPECTACLE 9 [facility]ISION [place] Zaldivar S XCPT APHAKIA MONOFOCAL SPHERE V2100 JAMES CONROY, SINGLE 9 [facility]ISION [place] Zaldivar VISION PLANO +/- 4.00 PER LENS FRAMES V2020 JAMES CONROY, PURCHASES 9 VISION [place] Zaldivar LEVONORGE J7302 [facility], STREL-RLS 9 [facility] E CLINIC OF INTRAUTER N ANNA CNTRACPT PLLC 52 MG URINE 97333 [facility], 9 [facility] TEST [facility] OF VISUAL COLOR [place] CMPRSN PLLC METHS INSERTION 90471 [facility], 9 [facility] J INTRAUTER CLINIC OF INE DEVICE [place] IUD PLLC URINE 29059 MAISHA FERRERA 9 [facility] TEST INC INC VISUAL COLOR CMPRSN METHS COMPREHEN 20712 MAISHA FERRERA SIVE 9 [facility] [address] MAISHA FERRERA AMYLASE 9 [facility] INC INC BLOOD 94935 MAISHA FERRERA COUNT 9 [facility] COMPLETE INC INC AUTO&[place] [address] MAISHA FERRERA LIPASE 9 [facility] INC INC URNLS DIP 84517 MAISHA FERRERA 9 [facility] STICK/TAB INC INC [place]AG[place] [address]881 MAISHA FERRERA THER 8 [facility] PROPH/DX INC INC 1ST >1 HR BLOOD 54729 MAISHA FERRERA COUNT 8 [facility] COMPLETE INC INC AUTO&AUTO DIFRNTL WBC AMB A0427 EVIE CASE SERVICE 8 AMBULANCE AMBULANCE ALS SERVICE SERVICE EMERGENCY TRANSPORT LEVEL 1 URINE 36823 MAISHA FERRERA 8 [facility] TEST INC INC VISUAL COLOR CMPRSN METHS BASIC 10351 MAISHA FERRERA METABOLIC 8 [facility] PANEL INC INC CALCIUM TOTAL URNLS DIP 98936 MAISHA FERRERA 8 [facility] STICK/TAB INC INC LET REAGENT AUTO MICROSCOP Y GROUND A0425 EVIE CASE MILEAGE 8 AMBULANCE AMBULANCE PER SERVICE SERVICE STATUTE MILE IIV3 01868 DHS/CO MAISHA VACCINE 8 [facility] VIRUS 0.5 BANK ACCT ML DOSAGE IM USE URINE 56781 [facility] HERNANDE[facility], 8 [facility] TEST CLINIC OF VISUAL [place] CMPRSN PLLC METHS CYTP 55256 [facility] [place], CERV/VAG 8 [place] INC ROBERT D AUTO THIN LAYER PREP MNL SCREEN RADEX 17383 MAISHA MAISHA ANKLE 8 [facility] COMPLETE INC INC MINIMUM 3 [place] [address] MAISHA FERRERA THYROID 8 [facility] STIMULATI [place] [address] MAISHA FERRERA ESTRADIOL 8 [facility] INC INC GONADOTRO 97680 MAISHA FERRERA PIN 8 [facility] FOLLICLE INC INC STIMULATI NG HORMONE GONADOTRO 25953 MAISHA MAISHA PIN 8 [facility] LUTEINIZI INC INC NG HORMONE RADEX 19100 JOHN KENY, FOREARM 2 8 MEDICAL NICK VIEWS IMAGING ASSOCIATE S RADEX 91562 MAISHA FERRERA SHOULDER 8 [facility] COMPLETE INC INC MINIMUM 2 VIEWS RADEX 76578 JOHN KENY, ELBOW 8 MEDICAL NICK COMPLETE IMAGING MINIMUM 3 ASSOCIATE VIEWS S RADEX 32233 MAISHA FERERRA ELBOW 2 8 [facility] VIEWS INC INC OPHTH 65878 CHRISTA GOODWIN MEDICAL 8 LIAM V LIAM V XM&EVAL COMPRHNSV ESTAB PT 1/> SPHERE V2100 CHRISTA GOODWIN SINGLE 8 LIAM V LIAM V VISION PLANO +/- 4.00 PER LENS RADIOLOGI 47121 MAISHA Agrawal 8 [facility] EXAMINATI INC INC ON SKULL 4/> VIEWS GROUND A0425 [facility] 8 AMBULANCE AMBULANCE PER SERVICE SERVICE STATUTE MILE AMBULANCE A0429 [facility] SERVICE 8 AMBULANCE AMBULANCE BLS SERVICE SERVICE EMERGENCY TRANSPORT SPHERE V2100 REYESGINETTEREYES RADHA 8 NATALIA A NATALIA A VISION PLANO +/- 4.00 PER LENS FRAMES V2020 AMY REYES PURCHASES 8 NATALIA A NATALIA A RPR&REFIT 17649 AMY REYES G 8 NATALIA A NATALIA A SPECTACLE S EXCEPT APHAKIA Encounters Encounter Start End Date Code Location Performer Type Date PERIODIC 16649 [facility] PREVENTIV 7 7 PHYSICIAN E MED EST S GROUP PATIENT 18-39 YRS OFFICE 03167 ANNA REIS OUTPATIEN 6 6 AMA T NEW 30 CHIROPRAC MINUTES [facility] OFFICE 71273 SARY OKEEFE OUTPATIEN 6 6 NELL NELL T VISIT 15 MINUTES EMERGENCY 28593 RYAN HANSON 6 6 PHYSICIAN [place] [facility], [facility] T VISIT HIGH/URGE NT SEVERITY OFFICE 53918 [facility] MIGUEL OUTPATINEWTON 6 6 PHYSICIAN ROBBI T NEW 10 S GROUP MINUTES HOSPITAL MAISHA - 6 6 [facility] OUTPATIEN INC T EMERGENCY 70592 MAISHA 6 6 [facility] DEPARTMEN INC T VISIT MODERATE SEVERITY EMERGENCY 44635 RYAN BAILON DEPT 6 6 PHYSICIAN VISIT S, PLLC HIGH SEVERITY& THREAT FUNCJ EMERGENCY 68033 RYAN DONIS 6 6 PHYSICIAN [place]MA [place] [facility], [facility] T VISIT HIGH/URGE NT SEVERITY PERIODIC 25837 [facility] MARY PREVENTIV 6 6 PHYSICIAN SOFIE E MED EST S GROUP PATIENT 18-39 YRS EMERGENCY 65584 RYAN DONIS 6 6 PHYSICIAN [facility] T VISIT HIGH/URGE NT SEVERITY OFFICE 82294 MARY ELLEN SAHNI OUTCLEMENTINA 6 6 MD KATLIN, T VISIT PSC 15 MINUTES EMERGENCY 79352 RYAN LICEA 6 6 PHYSICIAN [facility] T VISIT MODERATE SEVERITY EMERGENCY 33443 RYAN DONIS 6 6 PHYSICIAN [facility] T VISIT MODERATE SEVERITY EMERGENCY 01914 RYAN DONIS 6 6 PHYSICIAN [facility] T VISIT HIGH/URGE NT SEVERITY [facility]OSP[facility] [place] [address] 5 [facility] [place] [address] 5 [facility] CE OFFICE 47738 SARY OKEEFE OUTPATIEN 5 5 NELL NELL T VISIT 15 MINUTES OFFICE 95384 SARY OKEEFE OUTPATIEN 5 5 NELL NELL T VISIT 15 MINUTES OFFICE 52282 SARY OKEEFE OUTPATIEN 5 5 NELL NELL T VISIT 15 MINUTES HOSPITAL MAISHA - 5 5 [facility] OUTPATIEN INC T OFFICE 50605 MAISHA OUTPATIEN 5 5 [facility] T VISIT INC 10 MINUTES HOSPITAL MAISHA - 5 5 [facility] OUTPATIEN INC T OFFICE 20378 EDYTA HOLT OUTPATIEN 5 5 T NEW 30 MINUTES OFFICE 57177 [facility] TRA CONSULTAT 5 5 [place] ION ORTHOPAED NEW/ESTAB ICS PLC PATIENT 60 MIN EMERGENCY 31096 MAISHA CARRASCO JR 4 4 [facility] T VISIT P LOW/MODER SEVERITY HOSPITAL MAISHA - 4 4 [facility] OUTPATIEN INC T OFFICE 42684 SARY OKEEFE OUTPATIEN 4 4 NELL NELL T VISIT 15 MINUTES EMERGENCY 62485 [facility] 4 4 MYKEL DELMA DEPARTMEN EMERGENCY T VISIT PHYS MODERATE SEVERITY OFFICE 45808 MARY ORCHAPATINEWTON 4 4 SOFIE SOFIE T VISIT 15 MINUTES PERIODIC 12039 [facility]PT PATIENT LYNN LYNN 18-39 YRS OFFICE 01187 MARY ROCHAPATINEWTON 4 4 SOFIE SOFIE T VISIT 15 MINUTES EMERGENCY 21268 [facility] DEPT 4 4 DELMA DELMA VISIT HIGH SEVERITY& THREAT FUN OFFICE 70222 MARY MATAMOROS 4 4 SOFIE SOFIE T VISIT 15 MINUTES EMERGENCY 18231 STEFANY MCCALL 4 4 III MICHAEL III MICHAEL DEPARTMEN T VISIT MODERATE SEVERITY OFFICE 11294 [facility] OUTPATIEN 4 4 Y T VISIT 5 [facility] UNIVERSIT - 4 4 Y [facility] T OFFICE 25018 MOGHADAMI MOGHADAMI OUTPATIEN 4 4 AN DB AN DB T VISIT 15 [facility] MAISHA - 3 3 [facility] OUTPATIEN [facility] T [facility] UNIVERSIT - 3 3 Y [facility] T OFFICE 46359 UNIVERSIT OUTPATIEN 3 3 Y T VISIT 5 [facility] MAISHA - 3 3 [facility] OUTPATIEN INC T [facility] MAISHA - 3 3 [facility] OUTPATIEN INC T OFFICE 16513 UNIVERSIT OUTPATIEN 3 3 Y T VISIT HOSPITAL 15 [facility] UNIVERSIT - 3 3 Y [facility] T EMERGENCY 40513 [facility] DEPT 3 3 VISIT HIGH SEVERITY& THREAT [facility] UNIVERSIT - 3 3 Y INPATIENT HOSPITAL EMERGENCY 46618 GAGANDEEP DONIS 3 3 DELMA DELMA DEPARTMEN T VISIT HIGH/URGE NT SEVERITY HOSPITAL MAISHA - 3 3 [facility] OUTPATIEN INC T EMERGENCY 49821 GAGANDEEP DONIS 3 3 DELMA DELMA DEPARTMEN T VISIT HIGH/URGE NT SEVERITY EMERGENCY 19386 MAISHA 3 3 [facility] DEPARTMEN INC T VISIT LOW/MODER SEVERITY HOSPITAL MAISHA - 3 3 [facility] OUTPATIEN INC T EMERGENCY 59615 GAGANDEEP DONIS 3 3 DELMA [facility] DEPARTMEN T VISIT HIGH/URGE NT SEVERITY EMERGENCY 22402 MAISHA 3 3 [facility] DEPARTMEN INC T VISIT LOW/MODER SEVERITY OFFICE 20468 WILLIAM JENA TORRESES JENA OUTPATIEN 3 3 T VISIT 15 MINUTES OFFICE 57052 MAISHA FERRERA OUTPATIEN 2 2 [facility] T VISIT CENTER CENTER 10 MINUTES OFFICE 06224 KRISHNA KRISHNA OUTPATIEN 2 2 NELL NELL T VISIT 15 MINUTES OFFICE 85287 KRISHNA KRISHNA OUTPATIEN 2 2 NELL NELL T VISIT 15 MINUTES EMERGENCY 21089 MAISHA 2 2 [facility] DEPARTMEN INC T VISIT HIGH/URGE NT SEVERITY EMERGENCY 05656 CLIF DONIS DEPT 2 2 EMERGENCY [place] VISIT SERVICES HIGH SEVERITY& THREAT [facility] MAISHA - 2 2 [facility] OUTPATIEN INC T OFFICE 43129 MARCELLA MARCELLA OUTPATIEN 2 2 CRY CRY T NEW 20 MINUTES EMERGENCY 56185 SOL REA 2 2 MEDICAL UVALDO DEPARTMEN SERV T VISIT FOUNDATIO HIGH/URGE NT SEVERITY OFFICE 50903 KRISHNA KRISHNA OUTPATIEN 2 2 NELL NELL T VISIT 15 MINUTES OFFICE 21630 KRISHNA KRISHNA OUTPATIEN 2 2 NELL NELL T VISIT 15 MINUTES OFFICE 82881 WILLIAM JENA WILLIAM JENA OUTPATIEN 2 2 T VISIT 15 MINUTES OFFICE 84038 A C KRISHNA OUTPATIEN 1 1 LILIAN HANNA NELL T VISIT PSC 15 MINUTES EMERGENCY 04855 MAISHA 1 1 [facility] DEPARTMEN INC T VISIT MODERATE SEVERITY HOSPITAL MAISHA - 1 1 [facility] OUTPATIEN INC T EMERGENCY 01706 CLIF MCCALL 1 1 EMERGENCY III MICHAEL DEPARTMEN SERVICES T VISIT HIGH/URGE NT SEVERITY OFFICE 04145 A C KRISHNA OUTPATIEN 1 1 LILIAN HANNA NELL T VISIT PSC 15 MINUTES OFFICE 61349 A C QUINTANA A OUTPATIEN 1 1 LILIAN HANNA T VISIT PSC 15 MINUTES OFFICE 07538 A C QUINTANA A OUTPATIEN 1 1 LILIAN HANNA T VISIT 5 PSC MINUTES HOSPITAL MAISHA - 1 1 [facility] OUTPATIEN INC T OFFICE 76525 [facility] OUTPATIEN 1 1 HEALTH [facility] T VISIT CLINIC OF 15 ERIN MINUTES EMERGENCY 10042 CLIF MCCALL DEPT 1 1 EMERGENCY III MICHAEL VISIT SERVICES HIGH SEVERITY& THREAT [facility] MAISHA - 1 1 [facility] OUTPATIEN INC T EMERGENCY 43651 MAISHA 1 1 [facility] DEPARTMEN INC T VISIT MODERATE SEVERITY OFFICE 19553 A C KRISHNA OUTPATIEN 1 1 LILIAN CAMEJO T VISIT PSC 15 MINUTES EMERGENCY 56038 MAISHA 1 1 [facility] DEPARTMEN INC T VISIT MODERATE SEVERITY HOSPITAL MAISHA - 1 1 [facility] OUTPATIEN INC T EMERGENCY 94399 CLIF DONIS DEPT 1 1 EMERGENCY [place] VISIT SERVICES HIGH SEVERITY& THREAT FUNCJ OFFICE 01191 A Nghia Oliveira OUTPATIEN 1 1 LILIAN HANNA T VISIT PSC 15 MINUTES OFFICE 76622 DIAZDES DIAZ OUTPATIEN 0 0 NIRANJAN NIRANJAN T NEW 10 MINUTES EMERGENCY 25644 CLIF WILD 0 0 EMERGENCY DEPARTMEN SERVICES T VISIT HIGH/URGE NT SEVERITY HOSPITAL MAISHA - 0 0 [facility] OUTPATIEN INC T EMERGENCY 76726 MAISHA 0 0 [facility] DEPARTMEN INC T VISIT LIMITED/M INOR PROB EMERGENCY 24447 CLIF MCCALL 0 0 EMERGENCY III MICHAEL DEPARTMEN SERVICES T VISIT MODERATE SEVERITY HOSPITAL MAISHA - 0 0 [facility] OUTPATIEN INC T EMERGENCY 60754 MAISHA 0 0 [facility] DEPARTMEN INC T VISIT LOW/MODER SEVERITY OFFICE 36195 Roxanne KELLER OUTPATIEN 0 0 LILIAN CHAPMAN T VISIT PSC 15 MINUTES OFFICE 40994 Roxanne PEACOCK OUTPATIEN 0 0 LILIAN Agrawal T VISIT PSC 15 MINUTES OFFICE 00769 Roxanne PEACOCK OUTPATIEN 0 0 LILIAN Agrawal T VISIT PSC 15 MINUTES HOSPITAL MAISHA - 0 0 [facility] OUTPATIEN INC T EMERGENCY 28967 CLIF DONIS, 0 0 EMERGENCY [facility] DEPARTMEN SERVICES T VISIT MODERATE ASSOCIATE SEVERITY S OFFICE 10233 Roxanne PEACOCK OUTPATIEN 0 0 LILIAN Agrawal T VISIT PSC 15 MINUTES OFFICE 18108 [facility], OUTPATIEN 0 0 [facility] J T VISIT CLINIC OF 15 MINUTES [facility] EMERGENCY 86015 MAISHA 9 9 [facility] DEPARTMEN INC T VISIT LOW/MODER SEVERITY HOSPITAL MAISHA - 9 9 [facility] OUTPATIEN INC T EMERGENCY 28445 CLIF DONIS 9 9 EMERGENCY [facility] SERVICES T VISIT HIGH/URGE ASSOCIATE NT S SEVERITY PERIODIC 47838 [facility], PREVENTIV 9 9 [facility] J E MED EST CLINIC OF PATIENT 12-17YRS [place] [facility] EMERGENCY 57977 CLIF DONIS, DEPT 9 9 EMERGENCY [facility] VISIT SERVICES HIGH SEVERITY& ASSOCIATE THREAT S FUNCJ EMERGENCY 40444 MAISHA 9 9 [facility] DEPARTMEN INC T VISIT MODERATE SEVERITY HOSPITAL MAISHA - 9 9 [facility] OUTPATIEN INC T EMERGENCY 71038 CLIF MAGDALENO 9 9 EMERGENCY [facility] SERVICES T VISIT MODERATE ASSOCIATE SEVERITY S HOSPITAL MAISHA - 9 9 [facility] OUTPATIEN INC T EMERGENCY 75546 MAISHA 9 9 [facility] DEPARTMEN INC T VISIT LIMITED/M INOR PROB OFFICE 54958 [facility], OUTPATIEN 9 9 [facility] J T VISIT CLINIC OF 25 MINUTES [place] [facility] MAISHA - 9 9 [facility] OUTPATIEN INC T EMERGENCY 42589 IMAN DONIS, 9 9 [facility] T VISIT ON HIGH/URGE NT SEVERITY EMERGENCY 62262 MAISHA 9 9 [facility] DEPARTMEN INC T VISIT MODERATE SEVERITY HOSPITAL MAISHA - 8 8 [facility] OUTPATIEN INC T EMERGENCY 47676 MAISHA 8 8 [facility] DEPARTMEN INC T VISIT HIGH/URGE NT SEVERITY PERIODIC 27324 [facility] FARHAN HERNANDEZ 8 8 [facility] TAWANDA Byrne [facility] EST CLINIC OF PATIENT 12-17YRS [facility] MAISHA - 8 8 [facility] OUTPATIEN INC T EMERGENCY 29894 MAISHA 8 8 [facility] DEPARTMEN INC T VISIT LOW/MODER SEVERITY HOSPITAL MAISHA - 8 8 [facility] OUTPATIEN INC T OFFICE 78692 WOMEN'[facility] SATURNINO HERNANDEZ 8 8 [facility] TAWANDA Meléndez [facility] 30 CLINIC OF MINUTES [facility] MAISHA - 8 8 [facility] OUTPATIEN INC T EMERGENCY 29874 MAISHA 8 8 [facility] DEPARTMEN INC T VISIT LOW/MODER SEVERITY HOSPITAL MAISHA - 8 8 [facility] OUTPATIEN INC T EMERGENCY 67263 MAISHA 8 8 [facility] DEPARTMEN INC T VISIT LOW/MODER SEVERITY OFFICE 38639 FAMILY SATURNINO TRONCOSO 8 8 [facility] ROBERT T T VISIT ASSOCIATE 15 S MINUTES
--- OUTSIDE RECORDS SUMMARY | 2017-04-13 15:51 | External Medical Summary Rpt ---
Author Author , SRUTHI NEGRO Address Unknown Phone [email or web address] Immunization Name Date Rout CVX Reac Dose Comm Prov Is Faci e tion ent ider Refu lity Give sed n Hep 07-0 8 0.5 Hist GSHA No GSHA B, 6-20 mL oric NE NE ped/ 17 al adol Info rmat ion - Sour ce Unsp ecif ied Vari 01-0 21 999 Hist H149 No H149 cell 6-19 oric a 98 al Info rmat ion - Sour ce Unsp ecif ied MMR 08-2 3 999 Hist H149 No H149 5-19 oric 97 al Info rmat ion - Sour ce Unsp ecif ied [place] 08-2 2 999 Hist H149 No H149 o-OP 5-19 oric V 97 al Info rmat ion - Sour ce Unsp ecif ied DTaP 08-2 Intr 107 999 Hist H149 No H149 , UF 5-19 amus oric 97 cula al r Info rmat ion - Sour ce Unsp ecif ied
--- OUTSIDE RECORDS SUMMARY | 2017-04-13 15:51 | External Medical Summary Rpt ---
Author Author , SRUTHI NEGRO Address Unknown Phone .[employer] Immunization Name Date Rout CVX Reac Dose [...]
--- NOTE | 2017-04-13 16:22 | RADIOLOGY REPORT PS360 ---
CHEST(2 VIEWS-NOT PORTABLE) HISTORY: Chest pain and shortness of air pain ORDERING PHYSICIAN: Darrion Candelario MD PATIENT AGE: 22 years COMPARISON: 01/26/2016 FINDINGS: The cardiomediastinal silhouette and pulmonary vascularity are within normal limits. The lungs are clear without infiltrates, suspicious nodules, or pleural effusions. No acute bony abnormalities. IMPRESSION: Negative chest, no acute finding
[2017-04-13] MEDS ORDERED: ETODOLAC200 MG PO (17:17)
[2017-04-13 17:23] VITALS: BP 117/68
--- NOTE | 2017-04-13 22:51 | RADIOLOGY REPORT PS360 ---
KNEE-3 VIEWS-LT HISTORY: Knee pain and swelling following injury pain ORDERING PHYSICIAN: Darrion Candelario MD PATIENT AGE: 22 years COMPARISON: 03/08/2016 FINDINGS: No acute fracture or dislocation. No lytic or blastic change. Normal mineralization. No significant arthritic changes evident. There is a no fracture proximal shaft of the fibula IMPRESSION: No acute finding
== END 2017-04-13 17:27 | disposition home or self-care (01) ==
LOC: ER 15:09
PROC: 2W3MX1Z Immobilization of Left Lower Extremity using Splint (ICD-10-PCS; principal; 2017-04-13)
DX: S83.92XA Sprain of unspecified site of left knee, initial encounter (principal); T23.132A Burn of first degree of multiple left fingers (nail), not including thumb, initial encounter; W86.8XXA Exposure to other electric current, initial encounter; Y92.019 Unspecified place in single-family (private) house as the place of occurrence of the external cause
CPT/HCPCS: J2405

== ENCOUNTER 2017-05-10 12:41 | Emergency (ER) | payer MEDICAID ==
[~2017-05-10] VITALS: Ht 170.2 cm; Wt 87.5 kg
[~2017-05-10 12:41] MED LIST changes: +DICLOFENAC SODI75 M2 PO; +ETODOLAC200 MG PO; +FLUOXETINE HYDR20 MG PO; +GABAPENTIN 600600 MG PO; +GOOD SENSE OMEP20 MG PO; +QUETIAPINE FUMA50 M1 PO; +SPRINTEC 35 MCG1 TAB PO; +TRAZADONE HYDR100 MG PO
--- NOTE | 2017-05-10 13:05 | Urgent Treatment Center Report ---
History of Present Issue Date/Time Seen by Provider 05/10/17 1304 Visit Reason Pt arrived:Walked Presenting Problem:PT INJURIED LEFT KNEE APPROX 1 MONTH AGO AND SEEN IN THE ED. PT REINJURIED THE LEFT KNEE WEDNESDAY NIGHT. Location if Accident: Onset of symptoms date/time:/ or onset unknown for:MEDICAL HX UNKNOWN Have you (or family members/close friends) recently traveled outside the [place]? N If Yes, where/when: Have you had exposure to infectious disease within the past month? TB? Other? Specify: c/o left knee pain again. Needing a work note. Seen in ER 04/13 after being electrocuted. c/o left knee pain at that time. Dx left knee sprain. Referred to Dr. Morales. Missed FU appt and MRI due to new job. Reports today that 3-4 days prior to the electrocution, fell down stairs and injured left knee but aggravated it again when electrocuted. xray at that time negative for acute findings. Has been having continued knee pain. Taking ibuprofen "here and there ". Wearing knee brace. Hasn't tried to reschedule appt w/ ortho. Fell down stairs again on , 4 days ago. Now pain left medial and left lateral knee. Continues to have popping in knee x weeks. "seems the giving out feeling is getting worse". No new symptoms since most recent fall. Denies N/T. Wanting either a note that she can return to work with no restrictions at all or an extended work excuse/FMLA. Source patient Exam Limitations no limitations ALLERGIES Coded Allergies: prednisone (04/08/16) Home Medications Active Scripts Etodolac 200 MG PO QIDP PRN pain #20 CAP Prov: 04/13/17 Reported Medications NORGESTIMATE-ETHINYL ESTRADIOL (Sprintec 28 Day Tablet) 1 TAB PO DAILY #28 Gabapentin (Gabapentin 600MG) 600 MG PO Q8 #90 FLUOXETINE HCL (Fluoxetine Hydrochloride) 20 MG PO DAILY #30 Diclofenac Sodium 75 MG PO BID #60 Trazodone Hcl (Trazodone HCl) 100 MG PO QHSP PRN . #30 Omeprazole 20 MG PO BID #60 Quetiapine Fumarate 50 MG PO BID #60 History Medical History General CAD? No Angina: No ID: No Hypertension? No Hyperlipidemia? No CHF? No DVT? Yes PE? No COPD? No Asthma? Yes Anemia? No GERD? No Gastric ulcers? No GI Bleed? No Hernia? No Thyroid Problems? No Hypothyroidism? No CVA? No Seizures? No Diabetes? No Renal Insuffiency? No UTI? No Stones? No BPH? No GB Disease: No Nephritic Syndrome? No Asplenia? No Hepatitis? No Sickle Cell Disease? No Arthritis? No Migraines? No Cataracts? No Glaucoma? No MRSA? No HIV? No TB? No Anxiety? Yes Depression? No Cancer? No More? Yes Additional hx: BIPOLAR, HERNIATED DISK, MOOD SWINGS Immunization HX DT/Tetanus 5-10 Years Ago Surgical Hx Previous Surgery?Y RT LEG SURGERY Family History Family HX Diabetes Yes Hypertension Yes Cancer No TB No Social History Smoking Hx Smoker: Never Smoker Tobacco: No Packs/day < 1 Pack Alcohol Alcohol: No Review of Systems All Other Systems Reviewed and Negative Musculoskeletal see HPI, denies back pain, denies joint swelling Skin denies lesions, denies lumps Psychiatric/Neurological see HPI Physical Exam Vital Signs Vital Signs Date Time Temp Pulse Resp B/P Pulse O2 O2 Flow FiO2 Ox Delivery Rate 05/10 1428 98.0 68 18 119/73 97 05/10 1343 18 05/10 1259 98.0 68 18 119/73 97 General Appearance normal appearance, no apparent distress, wearing soft knee brace to left knee Respiratory Status No: respiratory distress. Cardiovascular no peripheral edema Peripheral Pulses Pulses normal Yes (DP/PT) Back gait abnormality (slight limp, favors left) Extremities non-tender (left lateral, medial michael), normal inspection (latasha knee), limited range of motion (left knee), joint stability, normal anterior, posterior drawers as well as valgus and varus Strength 5 Lower Ext (L), 5 Lower Ext (R) Neurologic alert, no motor/sensory deficits, oriented x 3 Mental status normal mood/affect Skin normal color, warm/dry Medical Decision Making LABS/Meds/Orders Pt receiving controlled substance in ED? No Results/Orders Current Medication Orders Sig/Jami Start time Last Medication Dose Route Stop Time Status Admin Ketorolac 60 MG ONCE ONE 05/10 1345 DC 05/10 Tromethamine IM 05/10 1346 1343 Ketorolac 0 .STK-MED ONE 05/10 1341 DC Tromethamine .ROUTE Orders Procedure Date/time Status STABILIZE JOINT 05/10 1421 Active Consult MD Physician Consult Consult/PCP Dr. Saab/'s office, ortho Reason Pt. Condition Comments MDs not available. Can see pt in one week despite no show on Apr 27. Appt Thursday 05/17 at 1:30. Hx of left knee pain d/t fall last year. Progress [facility] Progress Notes Date 05/10/17 Time 1420 Comment Continues to decline xray. Doesn't feel necessary. Rather follow up with ortho then have another xray. declined crutches. Agreeable to knee immobilizer and naproxen. Requesting extended back dated work excuse. Aware I will not back date and for any extended note, will need to follow up with primary care. Departure Departure Time of Disposition 1420 Disposition DC Home or Self Care(routine) Clinical Impression Primary Impression: Left knee pain Qualifiers: Chronicity: acute Qualified Code: M25.562 - Pain in left knee Condition STABLE Referrals ARTHUR HANNA, MARYCARMEN JEFFREY Called a made you an appt for 05/17 at 1:30. If you can not make it, VERY important you call and reschedule. Due to your one no show last month, if you no show again they can refuse to see you. Follow up with primary care this week for new or worsening symptoms or if after tomorrow, you still do not feel that you can return to work. Patient Instructions DI for Knee Pain Additional Instructions * knee immobilizer and non weight bearing left leg unless all pain resolved then ok to bear weight. * Rest * ice 15-20 mins 3-4 times a day * knee immobilizer for support and swelling unless in shower. Be sure not too tight but not too loose either * Elevate as discussed as much as possible to help reduce swelling and therefore , pain *naproxen every 12 hours as needed for pain and inflammation. If you need something more, you can take tylenol every 4 hours as needed as long as your primary care provider has told you it is ok to take both. * Remember you had a toradol shot, similiar anti-inflammatory in clinic so no naproxen until tonight. * No additional anti-inflammatories like motrin, aleve, advil with the above amount of naproxen. You CAN still take Tylenol every 4 hours as needed if you need something more for pain Discharge Counseling Counseled pt/family regarding diagnosis, medications/RX, home care, follow up needs Prescriptions Current Visit Scripts NAPROXEN (NAPROSYN 500MG TAB) 500 MG PO BID #20 TAB take with food at 9474
[2017-05-10] MEDS ORDERED: NAPROSYN 500MG500 MG PO (14:25)
[2017-05-10 14:28] VITALS: BP 119/73
== END 2017-05-10 14:29 | disposition home or self-care (01) ==
LOC: UTC 12:41
DX: M25.562 Pain in left knee (principal); Z79.3 Long term (current) use of hormonal contraceptives; Z79.899 Other long term (current) drug therapy; W10.9XXA Fall (on) (from) unspecified stairs and steps, initial encounter; Z91.81 History of falling; Y92.9 Unspecified place or not applicable

== ENCOUNTER → 2017-05-27 | Outpatient (CLI) | payer MEDICAID ==
[~2017-05-27] MED LIST changes: +NAPROSYN 500MG500 MG PO
--- NOTE | 2017-06-01 06:18 | RADIOLOGY REPORT PS360 ---
MRI-LOW EXT ANY JOINT W/O-LT HISTORY: Left knee pain following injury. Pain is posterior anterior and medial INJURY OF LT KNEE ORDERING PHYSICIAN: MARYCARMEN GIBSON MD PATIENT AGE: 22 years COMPARISON: 03/20/2016 TECHNIQUE: Standard multiplanar multiecho sequences are performed without contrast. FINDINGS: The PCL is intact. Tear of the ACL is once again noted. The collateral ligaments appear intact. Patellar tendon and quadriceps tendon appears intact. The posterior horn of the medial meniscus has an abnormal appearance being very small along its central aspect. Has the patient had interval surgery from the previous exam? Grade 2 signal intensity involves the posterior horn of the medial meniscus medially but does not meet strict MRI criteria for meniscal tear. A longitudinal tear involves the posterior horn of the lateral meniscus. A separate meniscal fragment is noted along the medial aspect of the posterior horn lateral meniscus superiorly. This may represent a flipped meniscal fragment from the lateral aspect of the posterior horn or merely a displaced fragment from the medial aspect of the posterior horn of the lateral meniscus.. No fracture or dislocation. No bone bruise. There is a small knee joint effusion. IMPRESSION: 1. Tear of the ACL. 2. Longitudinal tear of the posterior horn the medial meniscus with possible flipped meniscus versus displaced meniscal fragment from the posterior horn. 3. Small posterior horn of the medial meniscus centrally. Has the patient had a previous knee surgery. The previously noted meniscal fragment in the medial compartment is not apparent at this time. 4. Small knee joint effusion
== END ==
LOC: RAD 07:46
DX: S89.92XD Unspecified injury of left lower leg, subsequent encounter (principal); M25.562 Pain in left knee

== ENCOUNTER 2017-06-09 09:39 | Day surgery (SDC) | payer MEDICAID ==
[~2017-06-09] VITALS: Ht 170.2 cm; Wt 83.9 kg
[2017-06-09 14:27] VITALS: BP 96/60
--- NOTE | 2017-06-10 12:22 | Operative Note ---
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 The lesion was in the RIGHT preauricular area involving the anterior part of the RIGHT tragus. The perilesional area was infiltrated with 2 mL of 2 percent lidocaine containing epinephrine. A minimally invasive incision was marked out and the skin and subcutaneous tissue were incisied. The lesion extended extensively along the anterior border of the cartilage of the tragus. It was mobilized in entirety. And removed. Bleeding was stopped with bipolar cautery. The defect was repaired with a tissue rearrangement geometric plastic repair using 5-0 Vicryl and 5-0 nylon sutures. A Dermabond dressing was applied. Patient was sent to recovery in good general condition. EBL (ml): 2 Specimens obtained: Same as above at 1221
== END 2017-06-09 13:45 | disposition home or self-care (01) ==
LOC: SDC 09:39
PROVIDERS: Otolaryngology
PROC: 0HB2XZX Excision of Right Ear Skin, External Approach, Diagnostic (ICD-10-PCS; principal; 2017-06-09 11:30)
DX: L72.0 Epidermal cyst (principal)

== ENCOUNTER → 2017-07-10 | Emergency (ER) | payer MEDICAID ==
[~2017-07-10] VITALS: Ht 170.2 cm; Wt 87.5 kg
[~2017-07-10] MED LIST changes: +BACTRIM DS 8001 TA1 PO
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
--- OUTSIDE RECORDS SUMMARY | 2017-07-10 11:33 | External Medical Summary Rpt | CCD ---
Author Author [employer] Organization [employer] Address Unknown Phone Unavailable Purpose Continuity of Care Document - through 2016
--- OUTSIDE RECORDS SUMMARY | 2017-07-10 11:33 | External Medical Summary Rpt | CCD ---
Author Author , SRUTHI PIERSONTRINA Address Unknown Phone [email or web address] Immunization Name Date Rout CVX Reac Dose Comm Prov Is Faci e tion ent ider Refu lity Give sed n Infl 10-2 0.5 Hist GSHA No GSHA uenz 5-20 mL oric NE NE a 17 al Quad Info rmat W/Pr ion es - Sour ce Unsp ecif ied Hep 10-2 8 20 Hist GSHA No GSHA B, 5-20 mL oric NE NE ped/ 17 al adol Info rmat ion - Sour ce Unsp ecif ied Hep 07-0 8 0.5 Hist GSHA No GSHA B, 6-20 mL oric NE NE ped/ 17 al adol Info rmat ion - Sour ce Unsp ecif ied Vari 01-0 21 999 Hist H149 No H149 cell 6-19 oric a 98 al Info rmat ion - Sour ce Unsp ecif ied MMR 08-2 Intr 3 999 Hist H149 No H149 5-19 amus oric 97 cula al r Info rmat ion - Sour ce Unsp ecif ied [place] 08-2 Intr 2 999 Hist H149 No H149 o-OP 5-19 amus oric V 97 cula al r Info rmat ion - Sour ce Unsp ecif ied DTaP 08-2 Intr 107 999 Hist H149 No H149 , UF 5-19 amus oric 97 cula al r Info rmat ion - Sour ce Unsp ecif ied
--- OUTSIDE RECORDS SUMMARY | 2017-07-10 11:33 | External Medical Summary Rpt | CCD ---
Author Author , SRUTHI PIERSONTRINA Address Unknown Phone [email or web address] Immunization Name Date Rout CVX Reac Dose [...]
--- NOTE | 2017-07-10 11:52 | Urgent Treatment Center Report ---
History of Present Issue Date/Time Seen by Provider 07/10/17 1140 Visit Reason Pt arrived:Walked Presenting Problem:PT C/O OF UMBILICAL PAIN WITH UMBILICAL BLEEDING AND FOUL SMELL. Location if Accident: Onset of symptoms date/time:/ or onset unknown for:MEDICAL HX UNKNOWN Have you (or family members/close friends) recently traveled outside the [place]? N If Yes, where/when: Have you had exposure to infectious disease within the past month? TB? Other? Specify: Source patient, RN notes reviewed, family Exam Limitations no limitations Comment Patient presents with drainage from umbilicus times 2 days. Has been bloody and foul-smelling. No fever. No nausea or vomiting. Abdomen is tender to touch. ALLERGIES Coded Allergies: Penicillins (I-RASH 06/09/17) prednisone (I-HIVES 06/09/17) Home Medications Active Scripts NAPROXEN (NAPROSYN 500MG TAB) 500 MG PO BID #20 TAB Prov: 05/10/17 Reported Medications NORGESTIMATE-ETHINYL ESTRADIOL (Sprintec 28 Day Tablet) 1 TAB PO DAILY #28 Gabapentin (Gabapentin 600MG) 600 MG PO Q8 #90 FLUOXETINE HCL (Fluoxetine Hydrochloride) 20 MG PO DAILY #30 Diclofenac Sodium 75 MG PO BID #60 Trazodone Hcl (Trazodone HCl) 100 MG PO QHSP PRN . #30 Omeprazole 20 MG PO BID #60 Quetiapine Fumarate 50 MG PO BID #60 History Medical History General CAD? No Angina: No [place]: No Hypertension? No Hyperlipidemia? No CHF? No DVT? Yes PE? No COPD? No Asthma? Yes Anemia? No GERD? No Gastric ulcers? No GI Bleed? No Hernia? No Thyroid Problems? No Hypothyroidism? No CVA? No Seizures? No Diabetes? No Renal Insuffiency? No UTI? No Stones? No BPH? No GB Disease: No Nephritic Syndrome? No Asplenia? No Hepatitis? No Sickle Cell Disease? No Arthritis? No Migraines? No Cataracts? No Glaucoma? No MRSA? No HIV? No TB? No Anxiety? Yes Depression? No Cancer? No More? No Additional hx: BIPOLAR, HERNIATED DISK, MOOD SWINGS Immunization HX DT/Tetanus > 10 Years Ago Flu Refused Pneumonia Refuses Surgical Hx Previous Surgery?Y RT LEG SURGERY RIGHT EAR Family History Family HX Diabetes Yes CAD Yes Hypertension Yes Hyperlipidemia No Cancer No TB No Social History Smoking Hx Smoker: Current Every Day Smoker Tobacco: Yes Type Cigarettes Packs/day < 1 Pack Alcohol Alcohol: No Review of Systems All Other Systems Reviewed and Negative Skin see HPI Physical Exam Vital Signs Vital Signs Date Time Temp Pulse Resp B/P Pulse O2 O2 Flow FiO2 Ox Delivery Rate 07/10 1130 97.8 65 20 127/76 96 General Appearance normal appearance, no apparent distress Respiratory Status No: respiratory distress, trachea midline, chest symmetrical. Lung Sounds bilateral: normal breath sounds, lungs clear. Cardiovascular normal exam, regular rate/rhythm, no peripheral edema, no gallop, no JVD, no murmur, no rub Gastrointestinal normal bowel sounds, no guarding, tenderness, bloody drainage from umbilicus Neurologic alert, normal exam, oriented x 3 Mental status normal mood/affect Medical Decision Making LABS/Meds/Orders Pt receiving controlled substance in ED? No Results/Orders Orders Procedure Date/time Status CULTURE, WOUND 07/10 1150 Active Departure Departure Time of Disposition 1149 Disposition DC Home or Self Care(routine) Clinical Impression Primary Impression: CUTANEOUS ABSCESS OF UMBILICUS Condition STABLE Referrals KIMBERLEY SALVADOR (Family): 2 Days-Call Office Patient Instructions DI for Skin Abscess Additional Instructions Take antibiotics as prescribed. Keep clean and dry. Warm epsom salt soaks. Call office on Wednesday afternoon for culture results. Discharge Counseling Counseled pt/family regarding diagnosis, medications/RX, home care, follow up needs Prescriptions Current Visit Scripts SULFAMETHOXAZOLE W/TRIMETHOPRI (Bactrim Ds Tab) 1 TABLET PO BID #20 TAB at 1151
[2017-07-10 11:59] VITALS: BP 127/76
== END ==
LOC: UTC 11:27
DX: L02.211 Cutaneous abscess of abdominal wall (principal); J45.909 Unspecified asthma, uncomplicated; F17.210 Nicotine dependence, cigarettes, uncomplicated